=== PATIENT | female | born 1975 | race Caucasian/White ===

== ENCOUNTER 2023-09-23 12:33 | Emergency (ER) | payer MEDICAID, OTHER, SELFPAY ==
[2023-09-23 12:37] VITALS: BP 155/96; PULSE 78; RESP 18; TEMP 36.6; O2SAT 99; BMI 32.8
--- NOTE | 2023-09-23 12:46 | ED_ITS ---
HPI - General Adult General Chief complaint: Fall Stated complaint: fall at work l side inj Time Seen by Provider: 09/23/23 12:45 Source: patient Mode of arrival: ambulatory Limitations: no limitations History of Present Illness HPI narrative: Patient is a 47 year old assigned female at with no reported medical history presenting to the emergency department today with left sided pain after a fall. Patient states that she tripped and fell landing on her left side and now her entire left side of her body hurts. Patient denies any head strike or loss of consciousness. Patient denies any dizziness, lightheadedness, abdominal pain, nausea, vomiting, fever, chills, blurry vision, double vision, loss of vision, chest pain, difficulty breathing, shortness of breath, back pain, night sweats, pain with urination, increased urinary frequency, increased urinary urgency, blood in her urine or stool, syncope or a near syncopal episode, bowel incontinence, bladder incontinence, bowel retention, bladder retention, or any other complaints at this time. Onset (ago): hour(s) Location: left (body) Severity: mild Severity scale (1-10): 3 Quality: aching and dull Pain Consistency: constant Relieving factors: none Exacerbating factors: none Associated symptoms: denies other symptoms Treatments prior to arrival: none Related Data Previous Rx's Medication Instructions Recorded cyclobenzaprine 5 mg tablet 5 mg PO TID PRN muscle spasm 7 09/23/23 days #21 tabs Allergies Allergy/AdvReac Type Severity Reaction Status Date / Time No Known Allergies Allergy Verified 09/23/23 12:36 Review of Systems Constitutional: Constitutional: Reports no additional constitutional complaints, Denies chills, Denies fever(s) and Denies night sweats Eyes: Eyes: Reports no additional eye complaints, Denies blurry vision, Denies change in vision, Denies diplopia, Denies eye discharge, Denies loss of vision and Denies eye pain ENT: Denies dizziness Cardiovascular: Cardiovascular: Reports no additional cardiovascular complaints, Denies chest pain, Denies lightheadedness, Denies Loss of Consciousness and Denies dyspnea Respiratory: Respiratory: Reports no additional respiratory complaints and Denies dyspnea Gastrointestinal: Gastrointestinal: Reports no additional gastrointestinal complaints, Denies abdominal pain, Denies melena, Denies hematochezia, Denies change in bowel habits and Denies change in stool character Genitourinary: Genitourinary: Denies hematuria, Denies urinary frequency, Denies dysuria, Denies urinary incontinence, Denies urinary hesitancy and Denies urinary urgency Musculoskeletal: Musculoskeletal: Reports no additional musculoskeletal complaints, Denies numbness and Denies tingling Neurologic: Denies dizziness, Denies loss of vision, Denies numbness and Denies tingling Psychiatric: Psychiatric: Reports no additional psychiatric complaints Endocrine: Endocrine: Reports no additional endocrine complaints Hematologic/Lymphatic: Hematologic/Lymphatic: Reports no additional hematologic/lymphatic complaints Allergic/Immunologic: Allergic/Immunologic: Reports no additional allergic/immunologic complaints [facility] Past Medical History Attestation statement: The following information was validated with the patient. Source: old records reviewed and nursing notes reviewed Social History Social History Smoked in Last 30 Days: No Use of substances other than those prescribed or required for medical reasons: No Advance Directives: No Advance Directives Information Provided: No Physical Exam ED Vital Signs: Vital Signs - 24 hr 09/23/23 12:37 09/23/23 13:18 Temperature 97.8 F Pulse Rate 78 69 Respiratory Rate 18 14 Blood Pressure 155/96 H Pulse Oximetry 99 96 Oxygen Delivery Method Room Air Room Air BMI result Body Mass Index 32.8 Const General: cooperative, no acute distress, alert and awake Nutritional Appearance: well nourished Orientation/consciousness: patient oriented x3 Limitations: no limitations [facility] Head: Yes normal to inspection and Yes atraumatic Ears: hearing grossly normal bilaterally and external ears normal General nose exam: Normal external nose present, no nasal discharge noted and no epistaxis Face and sinus: Yes normal facial exam, No abrasion and No laceration Mouth: Normal oral and palatal mucosa present, no drooling and no muffled voice Eyes General: appearance normal, both eyes and all related structures Periorbital: periorbital findings normal Eyelids: Yes eyelids normal Conjunctivae: conjunctivae normal Pupils: Equal, round and reactive pupils present EOM: EOMs intact bilaterally Neck Neck: Yes normal visual inspection, Yes full ROM and Yes no lymphadenopathy Chest Chest palpation & inspection: normal inspection of the chest Resp Effort & Inspection: normal respiratory effort and able to speak in complete sentences Auscultation: clear to auscultation bilaterally Cardio Rate: regular rate Rhythm: regular rhythm GI Inspection: Yes normal to inspection Palpation (GI): Soft to palpation, not firm, nontender and no guarding Neuro General: patient oriented x3 and moves all extremities Cranial nerves: Yes Equal, round and reactive pupils present Cognition (Neuro): normal cognition Motor exam (neuro): 5/5 motor strength present throughout Sensory Exam: Normal double simultaneous stimulation for sensation Coordination: [id number] test normal Extrem General: Yes normal to inspection, Yes full ROM and Yes capillary refill normal Psych Appearance: grossly normal Mental Status: mental status grossly normal Affect: normal affect Attitude: cooperative Thought process: Normal thought process present Thought content: Normal thought content present Insight: Good insight present (Psych) Medications Administered Discontinued Medications Generic Name Dose Route Start Last Admin Trade Name Roosevelt PRN Reason Stop Dose Admin Cyclobenzaprine HCl 5 mg 09/23/23 12:52 09/23/23 13:05 Cyclobenzaprine Hcl 5 Mg Tablet PO 09/23/23 12:53 5 mg ONCE ONE Administration Ketorolac Tromethamine 15 mg 09/23/23 12:52 09/23/23 13:05 Ketorolac Tromethamine 15 Mg/Ml Vial IM 09/23/23 12:53 15 mg ONCE ONE Administration Medical Decision Making Medical Decision Making MDM Narrative: Patient is a 47 year old assigned female at with no reported medical history presenting to the emergency department today with left sided body pain after a fall. Patient's physical exam was unremarkable. I explained my physical exam findings to the patient. I answered all questions asked by the patient. I stressed the importance of the patient taking her medication as prescribed. I stressed the importance of the patient following up with her primary care provider. I stressed the importance of the patient returning to the emergency department immediately if her symptoms were to worsen or if she were to develop any dizziness, shortness of breath, difficulty breathing, chest pain, blurry vision, loss of vision, nausea, vomiting, abdominal pain, fever, chills, back pain, or any other complaints. Patient verbalized agreement and understanding with this treatment plan and discharge. Differential Diagnosis Differential Diagnoses: The differential diagnosis associated with the pres entation includes Trip and fall Left sided body pain Tests considered The following testing was considered but not selected: X-rays were considered however, the patient's clinical presentation did not warrant imaging at this time. Prescription Management I considered prescription management with: Pain Medication (patient prescribed pain medication.) Discharge Plan Discharge Clinical Impression: Fall Patient Disposition: Home, Self-Care Instructions: Fall Prevention (ED) Additional Instructions: Follow up with your primary care provider. Return to the emergency department immediately if your symptoms worsen or if you develop any dizziness, shortness of breath, difficulty breathing, chest pain, blurry vision, loss of vision, nausea, vomiting, abdominal pain, fever, chills, back pain, or any other complaints. Alon un seguimiento con garcia proveedor de atenci?n primaria. Regrese al departamento de emergencias inmediatamente si claudio s?ntomas empeoran o si presenta mareos, dificultad para respirar, dificultad para respirar, dolor en el pecho, visi?n borrosa, p?rdida de la visi?n, n?useas, v?mitos, dolor abdominal, fiebre, escalofr?os, dolor de espalda o cualquier otras quejas. Prescriptions: New cyclobenzaprine 5 mg tablet 5 mg PO TID PRN (Reason: muscle spasm) 7 Days Qty: 21 0RF Referrals: [facility] [Provider Group] (Call to establish and follow up with a primary care provider. If you already have a primary care provider, please follow up with them. Llame para establecer y realizar un seguimiento con un proveedor de atenci?n primaria. Si ya tiene un proveedor de atenci?n primaria, alon un seguimiento con ?l.) [facility] Primary CareJose [Provider Group] (Call to establish and follow up with a primary care provider. If you already have a primary care provider, please follow up with them. Llame para establecer y realizar un seguimiento con un proveedor de atenci?n primaria. Si ya tiene un proveedor de atenci?n primaria, alon un seguimiento con ?l.) [facility] Primary Care[facility] [Provider Group] (Call to establish and follow up with a primary care provider. If you already have a primary care provider, please follow up with them. Llame para establecer y realizar un seguimiento con un proveedor de atenci?n primaria. Si ya tiene un proveedor de atenci?n primaria, alon un seguimiento con ?l.) Stand Alone Forms: Work/School Release Interventions: ED Discharge Assessment Last Done: 09/23/23 13:29 Discharge Date/Time: 09/23/23 13:30 Print Language: Cymraes
--- NOTE | 2023-09-23 12:46 | PC.NURSE ---
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 Pt reports left sided body pains from her shoulder all the way down to her ankle. She reports mild neck pain but has full range of motion in all extremities
[2023-09-23] MEDS: Cyclobenzaprine HCl 5 MG TABLET PO (13:05)
[2023-09-23] MEDS: Ketorolac Tromethamine 15 MG/ML VIAL IM (13:05)
[2023-09-23 13:18] VITALS: PULSE 69; RESP 14; O2SAT 96
== END 2023-09-23 13:30 | disposition home or self-care (01) ==
PROVIDERS: Emergency Provider Emergency Medicine
DX: S79.912A Unspecified injury of left hip, initial encounter (principal); W01.10XA Fall on same level from slipping, tripping and stumbling with subsequent striking against unspecified object, initial encounter; Y93.9 Activity, unspecified; Y92.9 Unspecified place or not applicable; Y99.0 Civilian activity done for income or pay
CPT/HCPCS: 96372; 99284; J1885

== ENCOUNTER 2024-07-05 11:02 | Outpatient (REF) | payer MEDICAID, OTHER, SELFPAY ==
--- NOTE | ~2024-07-05 | US_ITS ---
EXAMINATION: MM DIAGNOSTIC DIGITAL BREAST TOMOSYNTHESIS, BILATERAL US BREAST LIMITED, BILATERAL MAMMOGRAPHY: CLINICAL INFORMATION: Diagnostic exam for 40-year-old female complaining of bilateral breast pain (diffuse on the left, inferolateral and medial as well as the retroareolar on the right) as well as bilateral palpable nodularities, with the patient having history of numerous cysts in both breasts. History of benign left breast cyst aspiration 03/17/2022. COMPARISON: Mammography: 03/06/2022. ([facility]) TECHNIQUE: Digital breast tomosynthesis is performed in both the craniocaudal and mediolateral oblique views along with computer-aided detection (CAD). Synthesized 2D images are generated from the tomosynthesis. In addition, added bilateral 3-D full-field MLO views for anterior compression were obtained. FINDINGS: The breasts are extremely dense, which lowers the sensitivity of mammography (ACR BI-RADS breast composition Category d). Redemonstration of innumerable global calcifications bilateral breasts, of which the majority layer on the MLO projections and are suggestive of milk of calcium. These are unchanged and benign. No suspicious pleomorphic groupings. No aggressive changes. There are numerous round and oval circumscribed masses in both breasts right greater than left, similar to recent prior exam, representing the known numerous cysts in both breasts. These are benign and largely stable. There is no area of architectural distortion in either breast. No suspicious masses. Parenchymal pattern is stable from 03/06/2022. No skin or axillary abnormalities. No correlation in either breast mammographically for breast pain aside from numerous cysts. ULTRASOUND: CLINICAL INFORMATION: Diffuse LEFT breast pain, and inferolateral and medial RIGHT breast pain. COMPARISON: Bilateral 08/06/2022, Left ultrasound 07/29/2022, bilateral diagnostic ultrasound 03/06/2022. ([facility]) TECHNIQUE: Targeted sonographic both breasts evaluation was performed using a high frequency linear transducer. Entire LEFT breast was scanned including all 4 quadrants, and the retroareolar region. The RIGHT breast was scanned lower lateral and lower medial quadrants, and the retroareolar region. This includes the regions of bilateral pain and numerous palpable nodularities. Selected archived documentation. FINDINGS: RIGHT BREAST: There is dense fibrocystic breast tissue present. There are numerous oval and round simple cysts as well as clusters of cysts present. These are benign. There are echogenic foci with ringdown artifact within microcysts, findings consistent with benign milk of calcium. No suspicious masses, abnormal shadowing, or suspicious cystic findings. Lower inner and lateral regions of right breast pain, likely related to the presence of numerous cysts. LEFT BREAST: There is dense fibrocystic breast tissue present. There are several oval and round simple cysts as well as clusters of microcysts cysts present. These are benign. There are echogenic foci with ringdown artifact within microcysts, findings consistent with benign milk of calcium. No suspicious masses, abnormal shadowing, or suspicious cystic findings. Diffuse left breast pain likely related to presence of numerous cysts. US/US breast LT limited mamm only IMPRESSION: -There are no findings suspicious for malignancy. There are no significant changes from the prior study. -Benign calcifications globally in both breasts. These layer and are likely milk of calcium. -Numerous round and oval cysts in both breasts, likely correlating with the regions of pain and palpable concern. Recommend clinical management and follow-up. -Otherwise, recommend the patient resume annual screening. OVERALL ASSESSMENT: Mammography: BI-RADS 2 - Benign Findings Ultrasound: BI-RADS 2 - Benign Findings RECOMMENDATION: 1. Patient should be managed based on the clinical impression. 2. Otherwise, routine annual screening mammography. This patient's information was entered into a reminder system with a target due date for their next mammogram.
--- NOTE | ~2024-07-05 | US_ITS ---
EXAMINATION: MM DIAGNOSTIC DIGITAL BREAST TOMOSYNTHESIS, BILATERAL US BREAST LIMITED, BILATERAL MAMMOGRAPHY: CLINICAL INFORMATION: Diagnostic exam for 40-year-old female complaining of bilateral breast pain (diffuse on the left, inferolateral and medial as well as the retroareolar on the right) as well as bilateral palpable nodularities, with the patient having history of numerous cysts in both breasts. History of benign left breast cyst aspiration 03/17/2022. COMPARISON: Mammography: 03/06/2022. ([facility]) TECHNIQUE: Digital breast tomosynthesis is performed in both the craniocaudal and mediolateral oblique views along with computer-aided detection (CAD). Synthesized 2D images are generated from the tomosynthesis. In addition, added bilateral 3-D full-field MLO views for anterior compression were obtained. FINDINGS: The breasts are extremely dense, which lowers the sensitivity of mammography (ACR BI-RADS breast composition Category d). Redemonstration of innumerable global calcifications bilateral breasts, of which the majority layer on the MLO projections and are suggestive of milk of calcium. These are unchanged and benign. No suspicious pleomorphic groupings. No aggressive changes. There are numerous round and oval circumscribed masses in both breasts right greater than left, similar to recent prior exam, representing the known numerous cysts in both breasts. These are benign and largely stable. There is no area of architectural distortion in either breast. No suspicious masses. Parenchymal pattern is stable from 03/06/2022. No skin or axillary abnormalities. No correlation in either breast mammographically for breast pain aside from numerous cysts. ULTRASOUND: CLINICAL INFORMATION: Diffuse LEFT breast pain, and inferolateral and medial RIGHT breast pain. COMPARISON: Bilateral 08/06/2022, Left ultrasound 07/29/2022, bilateral diagnostic ultrasound 03/06/2022. ([facility]) TECHNIQUE: Targeted sonographic both breasts evaluation was performed using a high frequency linear transducer. Entire LEFT breast was scanned including all 4 quadrants, and the retroareolar region. The RIGHT breast was scanned lower lateral and lower medial quadrants, and the retroareolar region. This includes the regions of bilateral pain and numerous palpable nodularities. Selected archived documentation. FINDINGS: RIGHT BREAST: There is dense fibrocystic breast tissue present. There are numerous oval and round simple cysts as well as clusters of cysts present. These are benign. There are echogenic foci with ringdown artifact within microcysts, findings consistent with benign milk of calcium. No suspicious masses, abnormal shadowing, or suspicious cystic findings. Lower inner and lateral regions of right breast pain, likely related to the presence of numerous cysts. LEFT BREAST: There is dense fibrocystic breast tissue present. There are several oval and round simple cysts as well as clusters of microcysts cysts present. These are benign. There are echogenic foci with ringdown artifact within microcysts, findings consistent with benign milk of calcium. No suspicious masses, abnormal shadowing, or suspicious cystic findings. Diffuse left breast pain likely related to presence of numerous cysts. US/US breast RT limited mamm only IMPRESSION: -There are no findings suspicious for malignancy. There are no significant changes from the prior study. -Benign calcifications globally in both breasts. These layer and are likely milk of calcium. -Numerous round and oval cysts in both breasts, likely correlating with the regions of pain and palpable concern. Recommend clinical management and follow-up. -Otherwise, recommend the patient resume annual screening. OVERALL ASSESSMENT: Mammography: BI-RADS 2 - Benign Findings Ultrasound: BI-RADS 2 - Benign Findings RECOMMENDATION: 1. Patient should be managed based on the clinical impression. 2. Otherwise, routine annual screening mammography. This patient's information was entered into a reminder system with a target due date for their next mammogram.
== END 2024-07-05 11:03 | disposition home or self-care (01) ==
LOC: HO.MAMMO 11:02
PROVIDERS: PCP Student in an Organized Health Care Education/Training Program; Visit Provider Student in an Organized Health Care Education/Training Program
DX: N64.4 Mastodynia (principal); N60.02 Solitary cyst of left breast
CPT/HCPCS: 76642; 77062; 77066

== ENCOUNTER → 2024-07-05 11:30 | Outpatient (BNV) | payer SELFPAY | PROVIDERS: PCP Student in an Organized Health Care Education/Training Program; Visit Provider Radiology Diagnostic Radiology | DX: N64.4 Mastodynia (principal) | CPT/HCPCS: 76642; 77062; 77066 ==

== ENCOUNTER 2025-05-10 08:34 | Emergency (ER) | payer MEDICAID, OTHER, SELFPAY ==
[2025-05-10 08:43] VITALS: BP 114/73; PULSE 75; RESP 18; TEMP 37; O2SAT 98; BMI 28.9
--- NOTE | 2025-05-10 08:57 | ECG_ITS ---
Test Reason : cp Blood Pressure : */* mmHG Vent. Rate : 76 BPM Atrial Rate : 76 BPM P-R Int : 178 ms QRS Dur : 100 ms QT Int : 384 ms P-R-T Axes : 49 -30 41 degrees QTcB Int : 432 ms Normal sinus rhythm Left axis deviation Minimal voltage criteria for LVH, may be normal variant ( [place] product ) Abnormal ECG No previous ECGs available Referred By: Ed Garcia Electronically Signed By: Derek Lay
--- NOTE | 2025-05-10 08:58 | ED_ITS ---
HPI - General Adult General Chief complaint: General Medical Stated complaint: Fever, sore throat Time Seen by Provider: 05/10/25 08:42 Source: patient Mode of arrival: ambulatory Limitations: no limitations History of Present Illness HPI narrative: THIS IS A 49 YEARS OLD THE PATIENT HISTORY OF HYPERTENSION PRESENTED TO EMERGENCY DEPARTMENT WITH MULTIPLE COMPLAINTS ONE IS SORE THROAT FOR ABOUT 3 DAYS AND FEVER ALSO SHE IS COMPLAINING OF YESTERDAY SHE WAS AT WORK SHE FELT DIZZY LIGHTHEADED SHE HAD AN EPISODE OF PASSING OUT FEELING. SHE REPORTS ALSO FEVER NO NAUSEA NO VOMITING NO ABDOMINAL PAIN NO OTHER COMPLAINT Onset (ago): day(s) (2) Radiation: non-radiation Severity: moderate Quality: burning Pain Consistency: constant Relieving factors: none Exacerbating factors: none Related Data Previous Rx's ?Medication ?Instructions ?Recorded cyclobenzaprine 5 mg tablet 5 mg PO TID PRN muscle spa sm 7 09/23/23 days #21 tabs ibuprofen 800 mg tablet 800 mg PO TID PRN pain #20 t abs 05/10/25 Allergies Allergy/AdvReac Type Severity Reaction Status Date / Time No Known Allergies Allergy Verified 05/10/25 08:44 Review of Systems 2 Constitutional: Constitutional: Reports no additional constitutional complaints ENT: Reports as per HPI [facility] Past Medical History [facility] Narrative: HISTORY OF HYPERTENSION Social History Social History Advance Directives: No Advance Directives Information Provided: No Physical Exam ED Vital Signs: Vital Signs - 24 hr 05/10/25 08:43 Temperature 98.6 F Pulse Rate 75 Respiratory Rate 18 Blood Pressure 114/73 Pulse Oximetry 98 Oxygen Delivery Method Room Air BMI result Body Mass Index 28.9 PATIENT LOOKS WELL SHE IS NOT TOXIC-APPEARING SHE IS AFEBRILE SHE HAS A STABLE VITAL SIGNS Const General: cooperative Nutritional Appearance: well nourished Orientation/consciousness: patient oriented x3 Limitations: no limitations HENMT Head: Yes normal to inspection Face and sinus: Yes normal facial exam Mouth: Normal oral and palatal mucosa present Throat: Yes other (EXAMINATION OF THE THROAT SHOWS REDNESS BUT THE UVULA IS MIDLINE NO THRISM) Neck Other: AND NECK IS SUPPLE NO MENINGEAL SIGN Chest Chest palpation & inspection: normal inspection of the chest Resp Effort & Inspection: normal respiratory effort Auscultation: clear to auscultation bilaterally Cardio Jugular venous distension: no JVD Rate: regular rate GI Inspection: Yes normal to inspection Palpation (GI): Soft to palpation Neuro General: patient oriented x3 Course Reevaluation(s) Reevaluation #1: On re-examination the patient is feeling much better she is asymptomatic at this time remained afebrile normotensive anticipate discharge Time: 11:03 Medications Administered Discontinued Medications Generic Name Dose Route Start Last Admin Trade Name Freq PRN Reason Stop Dose Admin Ibuprofen 800 mg 05/10/25 08:56 05/10/25 09:08 Ibuprofen 800 Mg Tablet PO 05/10/25 08:57 800 mg ONCE ONE Administration Medical Decision Making Medical Decision Making [facility] Narrative: THIS IS A 49 YEARS OLD WITH SORE THROAT EPISODE OF LIGHTHEADEDNESS YESTERDAY REASONABLE TO CHECK A RAPID STREP BASELINE BLOOD WORK SHE LOOKS OTHERWISE WELL SHE IS NOT TOXIC-APPEARING ASSUMING ABOVE NORMAL ANTICIPATE DISCHARGE Differential Diagnosis Differential Diagnoses: The differential diagnosis associated with the presentation includes VIRAL SYNDROME/STREP THROAT COVID/FLU/ANEMIA Admission/Observation Consideration of admission/observation: Escalation of care including admission/observation considered Lab Data [facility] Lab Attestation statement: I reviewed the patient's lab results. 05/10/25 09:15 05/10/25 09:15 Labs: Lab Results 05/10/25 05/10/25 Range/Units 09:08 09:15 WBC 12.0 H (4.8-10.8) X10*3/uL RBC 4.45 (4.20-5.50) X10*6/uL Hgb 10.5 L (12.0-16.0) g/dl Hct 34.1 L (37.0-47.0) % MCV 76.6 L (80.0-98.0) fL MCH 23.6 L (27.0-33.0) pg MCHC 30.8 L (31.0-35.0) g/dl RDW 16.6 H (11.0-16.0) % Plt Count 211 (160-400) X10*3/uL MPV 10.1 (9.4-12.3) fL Immature Gran % (Auto) 0.4 (0.0-0.4) % Neut % (Auto) 81.2 H (45-73) % Lymph % (Auto) 9.5 L (20-40) % [place] % (Auto) 8.2 (2-11) % Eos % (Auto) 0.4 (0-4) % Baso % (Auto) 0.3 (0-2) % Lymph # (Auto) 1.1 L (1.2-4.9) X10*3/uL [place] # (Auto) 1.0 (0.1-1.2) X10*3/uL Eos # (Auto) 0.1 (0.0-0.4) X10*3/uL Baso # (Auto) 0.0 (0.0-0.2) X10*3/uL Abs Immat Gran (auto) 0.05 H (0.00-0.03) X10*3/uL Absolute Neuts (auto) 9.7 H (2.0-8.3) x10*3/uL Absolute Nucleated RBC 0.000 (0.0-0.012) X10*3/uL Nucleated RBC % (auto) 0.0 (0.0-0.2) /100WBC Sodium 139 (135-145) mmol/L Potassium 4.1 (3.3-5.1) mmol/L Chloride 105 (96-108) mmol/L Carbon Dioxide 27 (22-29) mmol/L Anion Gap 11 L (12-20) BUN 10 (9-16) mg/dL Creatinine 1.05 (0.5-1.4) mg/dL Estim Creat Clear Calc 74.5 Estimated GFR 56 Random Glucose 109 (60-115) mg/dL Calcium 9.0 (8.4-10.2) mg/dL Total Bilirubin 0.3 (0.0-1.0) mg/dL AST 20 (5-31) U/L ALT 14 (0-31) U/L Alkaline Phosphatase 100 (39-117) U/L Troponin I High Sens < 2.7 (<3.5-17.0) ng/L Total Protein 7.3 (6.5-8.0) g/dL Albumin 4.1 (3.5-5.0) g/dL Influenza Type A (PCR) NEGATIVE (Negative) Influenza Type B (PCR) NEGATIVE (Negative) RSV RNA Qual (PCR) NEGATIVE (Negative) SARS-CoV-2 RNA (RT-PCR) NEGATIVE (Negative) S. pyogenes GrpA ANAYELI Negative (Negative) Independent Interpretation I performed an independent interpretation of an: EKG (Normal sinus rhythm no ST- T changes normal EKG) Discharge Plan Discharge Clinical Impression: Acute viral syndrome Patient Disposition: Home, Self-Care Instructions: Viral Syndrome (ED) Additional Instructions: Follow-up with your primary care physician return to the emergency room if you worse Prescriptions: New ibuprofen 800 mg tablet 800 mg PO TID PRN (Reason: pain) Qty: 20 0RF No Action cyclobenzaprine 5 mg tablet 5 mg PO TID PRN (Reason: muscle spasm) 7 Days Qty: 21 0RF Referrals: Sarina Grier MD [Primary Care Provider, Internal Medicine] - 05/11/25 Stand Alone Forms: Work/School Release Print Language: Swedish
[2025-05-10] MEDS: Ibuprofen 800 MG TABLET PO (09:08)
--- OUTSIDE RECORDS SUMMARY | 2025-05-10 09:17 | XMS_ITS | Clinical Summary ---
Author Organization [facility] Address [address] [place] [address] Care Team Providers Care Regulatory And Compliance Technician Name Role Phone Allison Prather NP Primary Care Provider Source Comments PLEASE NOTE, if this patient is a minor, it may be UNLAWFUL to discuss sensitive information that is contained in these records (such as FAMILY PLANNING, MENTAL HEALTH or SUBSTANCE ABUSE) with the minor patient's parent or other person without the patient's specific authorization.[facility] Allergies No known active allergies Medications amLODIPine (NORVASC) 5 mg tablet Take 5 mg by mouth daily 4 07/31/20 25 Active atorvastatin (LIPITOR) 20 mg tablet Take 20 mg by mouth once daily 4 07/31/20 25 Active lisinopriL 20 mg tablet Take 20 mg by mouth daily 4 07/31/20 25 Active metoprolol succinate XL (TOPROL-XL) 100 mg 24 hr tablet Take 100 mg by mouth daily 4 07/31/20 25 Active ulipristaL (PAIGE) 30 mg tabletIndications: Encounter for prescription of emergency contraception Take 1 Tablet by mouth once for 1 dose 1 Tablet 3 5 Active Active Problems Problem Noted Date Diagnosed Date Class 1 obesity due to exces s calories with serious comorbidity and body mass index (BMI) of 32.0 to 32.9 in adult 07/04/2024 Breast pain 05/17/2024 Primary hypertension 02/09/2024 Encounters Date Type Department Care Team Description 04/11/2025 Results Follow-Up [address] [id number] Renée Guerra MD SURESWAB ADVANCED VAGINITIS PLUS, TMA, THINPREP IMAGING PAP, HPV MRNA E6/E7 RFLEX HPV 16,18/45 CT/NG Cervix-Endocervix Swab Routine 04/04/2025 8:40 AM EDT Office Visit [address] [phone] Renée Guerra MD Martinez, Celestia Encounter for Papanicolaou smear of vagina as part of routine gynecological examination (Primary Dx); Encounter for screening for human papillomavirus (HPV); Screening for STDs (sexually transmitted diseases); Screening mammogram for breast cancer; Encounter for prescription of emergency contraception from Last 3 Months Immunizations Immunization Administration Dates Next Due Hep B, Adult/Adol (ENERGIX/RECOMBIVAX) 07/04/2024(Deferred: Different Brand Given) Hep B,adult,adjuvanted (HEPLISAV) 07/04/2024 TDAP 07/04/2024 Family History Medical History Relation Name Comments Hypertension Father Diabetes Mother Hypertension Mother Relation Name Status Comments Father Mother Alive Social History Tobacco Use Types Packs/Day Years Used Date Smoking Tobacco: Never Smokeless Tobacco: Never Tobacco Cessation:Counseling Given: Yes Alcohol Use Standard Drinks/Week Comments Never 0 (1 standard drink = 0.6 oz pur e alcohol) Social Connections Answer Date Recorded Connectedness 1 07/04/2024 Financial Resource Strain Answer Date R ecorded Financial Resource Strain 1 2023 Stress Answer Date Recorded Stress 1 07/04/2024 Physical Activity Answer Date Recorded Physical Activity 0 02/09/2024 Food Insecurity Answer Date Recorded Food 1 07/04/2024 Transportation Needs Answer Date Record ed Transportation 1 07/04/2024 Housing Stability Answer Date Recorded Housing 1 07/04/2024 Safety and Environment Answer Date Toni rded Safety 0 02/09/2024 Utilities Answer Date Recorded Utilities 1 07/04/2024 Employment Answer Date Recorded Employment 0 02/09/2024 Comments No Sex and Gender Information Value Date Recorded Sex Assigned at Female 02/02/2024 6:53 AM PDT Legal Sex Female 6:53 AM PDT Gender Identity Female 02/02/2024 6:53 AM PDT Sexual Orientation Straight 02/02/2024 6: 53 AM PDT 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 Not on file Not on file Last Filed Vital Signs Vital Sign Reading Time Taken Comments Blood Pressure 118/81 04/04/2025 8:57 AM EDT Pulse 67 04/04/2025 8:57 AM EDT Temperature 36.3 C (97.3 F) 04/04/2025 8:57 AM EDT Respiratory Rate 16 04/04/2025 8:57 AM EDT Oxygen Saturation 100% 04/04/2025 8:57 AM EDT Inhaled Oxygen Concentration - - Weight 96.5 kg (212 lb 11.2 oz) 04/04/2025 8:57 AM EDT Height 172.7 cm (5' 8 ) 07/04/2024 9:52 AM EDT Body Mass Index 32.34 07/04/2024 9:52 AM EDT Plan of Treatment Health Maintenance Due Date Last Done Comments HPV Screening 1975 Breast Cancer Screening (Mammogram) 2015 CT Colonography 2020 Colonoscopy 2020 Colorectal Cancer Screening 2020 FIT/gFOBT 2020 Fecal DNA 2020 Flexible Sigmoidoscopy 2020 [id number] ( season) 2024 Imm-Hepatitis B (2 of 2 - Cp G 2-dose series) 08/01/2024 07/04/2024 Alcohol and Drug Screen 11/22/2024 07/04/2024 Lipid Screening 07/04/2025 07/04/2024 Relationship Safety Screening/Counseling 07/04/2025 07/04/2024 Tobacco Screening 07/04/2025 07/04/2024 Imm-Influenza (Season Ended) 2025 Anxiety Screening 01/12/2026 01/12/2025 Annual Wellness (Adult): Ind icated (All Coverage) 04/04/2026 04/04/2025, 07/04/2024 Diabetes Screening 07/04/2027 07/04/2024, 07/04/2024 Pap Smear 04/04/2028 04/04/2025 Cervical Cancer Screening 04/04/2030 Pap + HPV 04/04/2030 04/04/2025 Imm-DTaP/Tdap/Td (2 - Td or Tdap) 07/04/2034 024 HIV Screening Completed 07/04/2024 Hepatitis C Screening Completed 07/04/2024 Depression Annual Screen Completed 01/12/2025, 06/22 Cervical Ablation/Cold-Knife Conization Discontinued Cervical Cryotherapy Discontinued Colposcopy Discontinued Endometrial Biopsy Discontinued Excision/Leep Discontinued HPV Genotyping Discontinued Vaginal Pap Discontinued Vulvoscopy Discontinued Procedures Procedure Name Priority Date/Time Associated Diagnosis Comments THINPREP IMAGING PAP, HPV MRNA E6/E7 RFLEX HPV 16,18/45 CT/NG Routine 04/04/2025 9:01 AM EDT Encounter for Papanicolaou smear of vagina as part of routine gynecological examination Encounter for screening for human papillomavirus (HPV) SURESWAB ADVANCED VAGINITIS PLUS, TMA Routine 04/04/2025 9:01 AM EDT Screening for STDs (sexually transmitted diseases) HIV 1/2 AG & AB W/RFLX (4TH GEN) Routine 07/04/2024 10:20 AM EDT Routine general medical examination at a health care facility HEPATITIS C AB W/RFLX HCV RNA, QT, RT PCR Routine 07/04/2024 10:20 AM EDT Routine general medical examination at a health care facility HEMOGLOBIN GLYCOSYLATED A1C Routine 07/04/2024 10:20 AM EDT Routine general medical examination at a [facility] care facility LIPID PANEL Routine 07/04/2024 10:20 AM EDT Routine general medical examination at a health care facility from Last 3 Months or Most Recently Relevant to Health Maintenance Results * (ABNORMAL) SURESWAB ADVANCED VAGINITIS PLUS, TMA (04/04/2025 9:01 AM EDT) SURESWAB(R) ADV BACTERIAL VAGINOSIS (BV), TMA POSITIVE(A) NEGATIVE [facility] ANGELA SPECIES NOT DETECTED NOT DETECTED [facility] ANGELA GLABRATA NOT DETECTED NOT DETECTED [facility] COMMENT [facility] TRICHOMONAS VAGINALIS (TV), TMA NOT DETECTED NOT DETECTED [facility] CHLAMYDIA TRACHOMATIS RNA, TMA NOT DETECTED NOT DETECTED [facility] NEISSERIA GONORRHOEAE RNA, TMA NOT DETECTED NOT DETECTED [facility] COMMENT [facility] Vaginal Vaginal structure / Unknown 04/04/2025 9:01 AM EDT 04/05/2025 4:21 AM EDT Narrative [facility] - 04/05/2025 3:03 PM EDT Angela species C. albicans, C. tropicalis, C. parapsilosis, and/or C. dubliniensis can be detected, but not differentiated, in the Angela spp. result. For additional information, please refer to https://education.Hartman Wright/faq/OOE596 (This link is being provided for information/ educational purposes only.) us Renée Guerra MD LAB - MICROBIOLOGY AMBULATORY Fi nal Result [facility] [address] [place] [id number], [facility] [address] [place] [phone] * THINPREP IMAGING PAP, HPV MRNA E6/E7 RFLEX HPV 16,18/45 CT/NG Cervix- Endocervix Swab Routine (04/04/2025 9:01 AM EDT) CHLAMYDIA TRACHOMATIS RNA, TMA NOT DETECTED NOT DETECTED [facility] NEISSERIA GONORRHOEAE RNA, TMA NOT DETECTED NOT DETECTED [facility] COMMENT [facility] CLINICAL INFORMATION See Note [facility] Comment:None given LMP See Note [facility] Comment:03/13/25 PREV. PAP See Note [facility] Comment:NONE GIVEN PREV. BX See Note [facility] Comment:NONE GIVEN SOURCE See Note [facility] Comment:Cervix, Endocervix STATEMENT OF ADEQUACY See Note [facility] Comment: Satisfactory for evaluation. Endocervical/transformation zone component absent. INTERPRETATION/RESU LT See Note [facility] Comment: Cytology Results: Negative for intraepithelial lesion or malignancy. INFECTION See Note [facility] Comment: Shift in vaginal deana suggestive of bacterial vaginosis. COMMENT See Note [facility] Comment: This Pap test has been evaluated with computer assisted technology. PHP ENGINEER See Note [facility] Into [employer] Comment: RXB, CT(ASCP) CT screening location: [place] [address] COMMENT [facility] HPV MRNA E6/E7 Not Detected Not Detected [facility] Comment: Methodology: Training Manager-Mediated Amplification This assay detects E6/E7 viral messenger RNA (mRNA) from 14 high-risk HPV types (16,18,31,33,35,39,45,51,52,56,58,59,66,68). Cervical sources are required for HPV testing. If a vaginal source from a patient who has had a total hysterectomy with removal of cervix was submitted, please contact the testing laboratory for alternative testing options. For additional information, please refer to http://ClaimIt.Hartman Wright/faq/AYN197o0 (This link if provided for information/ educational purposes only.) Swab Cervix uteri structure / Unknown 04/04/2025 9:01 AM EDT 04/05/2025 11:35 AM EDT Narrative [facility] - 04/09/2025 2:43 PM EDT EXPLANATORY NOTE: The Pap is a screening test for cervical cancer. It is not a diagnostic test and is subject to false negative and false positive results. It is most reliable when a satisfactory sample, regularly obtained, is submitted with relevant clinical findings and history, and when the Pap result is evaluated along with historic and current clinical information. The analytical performance characteristics of this assay, when used to test SurePath(TM) specimens have been determined by [employer]. The modifications have not been cleared or approved by the FDA. This assay has been validated pursuant to the CLIA regulations and is used for clinical purposes. For additional information, please refer to https://education.Hartman Wright/faq/CIT300 (This link is being provided for information/ educational purposes only.) us Renée Guerra MD LAB - PATHOLOGY AND CYTOLOGY AMB ULATORY Final Result [facility] [address] [address], [facility] [address] [place] [address] * HEPATITIS C AB W/RFLX HCV RNA, QT, RT PCR (07/04/2024 10:20 AM EDT) HEPATITIS C ANTIBODY NON-REACT JESUS NON-REACT JESUS [facility] Comment: HCV antibody was non-reactive. There is no laboratory evidence of HCV infection. In most cases, no further action is required. However, if recent HCV exposure is suspected, a test for HCV RNA (test code 57420) is suggested. For additional information please refer to http://ClaimIt.Hartman Wright/faq/LVL00d0 (This link is being provided for informational/ educational purposes only.) Blood Blood / Unknown 07/04/2024 1 0:20 AM EDT 07/04/2024 10:21 AM EDT Allison Prather NP LAB - BLOOD DRAW Final Resul t [facility] [address] [place] [address], [facility] [address] [phone] * HIV 1/2 AG & AB W/RFLX (4TH GEN) (07/04/2024 10:20 AM EDT) HIV AG/AB, 4TH GEN NON-REAC TIVE NON-REAC TIVE [facility] Comment: HIV-1 antigen and HIV-1/HIV-2 antibodies were not detected. There is no laboratory evidence of HIV infection. PLEASE NOTE: This information has been disclosed to you from records whose confidentiality may be protected by state law. If your state requires such protection, then the state law prohibits you from making any further disclosure of the information without the specific written consent of the person to whom it pertains, or as otherwise permitted by law. A general authorization for the release of medical or other information is NOT sufficient for this purpose. For additional information please refer to http://ClaimIt.Hartman Wright/faq/MYD918 (This link is being provided for informational/ educational purposes only.) The performance of this assay has not been clinically validated in patients less than 2 years old. Blood Blood / Unknown 07/04/2024 1 0:20 AM EDT 07/04/2024 10:21 AM EDT us Allison Prather NP LAB - BLOOD DRAW Final Resul t Performing Organization Address [facility]/ZIP Co de Phone Number [facility] [address] [address], Compliance Control [address] [phone] * HEMOGLOBIN GLYCOSYLATED A1C (07/04/2024 10:20 AM EDT) HEMOGLOBIN A1C 5.6 <5.7 % of total Hgb [facility] Comment: For the purpose of screening for the presence of diabetes: <5.7% Consistent with the absence of diabetes 5.7-6.4% Consistent with increased risk for diabetes (prediabetes) > or =6.5% Consistent with diabetes This assay result is consistent with a decreased risk of diabetes. Currently, no consensus exists regarding use of hemoglobin A1c for diagnosis of diabetes in children. According to [place] Diabetes Association (ADA) guidelines, hemoglobin A1c <7.0% represents optimal control in non- diabetic patients. Different metrics may apply to specific patient populations. Standards of Medical Care in Diabetes(ADA). Blood Blood / Unknown 07/04/2024 1 0:20 AM EDT 07/04/2024 10:21 AM EDT us Allison Prather NP LAB - BLOOD DRAW Edited Resu lt - Final Performing Organization Address [facility]/ZIP Co de Phone Number [facility] [address] [address], Compliance Control [address] [address] * LIPID PANEL (07/04/2024 10:20 AM EDT) CHOLESTEROL, TOTAL 146 <200 mg/dL [facility] HDL CHOLESTEROL 85 > OR = 50 mg/dL [facility] TRIGLYCERIDES 36 <150 mg/dL [facility] LDL-CHOLESTEROL 51 99 mg/dL (calc) [facility] Comment: Reference range: <100 Desirable range <100 mg/dL for primary prevention; <70 mg/dL for patients with CHD or diabetic patients with > or = 2 CHD risk factors. LDL-C is now calculated using the Arnaldo-Moncada calculation, which is a validated novel method providing better accuracy than the Friedewald equation in the estimation of LDL-C. Arnaldo SS et al. JULIA. 2013;310(19): 5744-6856 (http://education.TableApp/faq/TXX671) CHOL/HDLC RATIO 1.7 <5.0 (calc) [facility] NON-HDL CHOLESTEROL 61 <130 mg/dL (calc) [facility] Comment: For patients with diabetes plus 1 major ASCVD risk factor, treating to a non-HDL-C goal of <100 mg/dL (LDL-C of <70 mg/dL) is considered a therapeutic option. Blood Blood / Unknown 07/04/2024 1 0:20 AM EDT 07/04/2024 10:21 AM EDT Allison Prather NP LAB - BLOOD DRAW Final Resul t [facility] [address] [address], [facility] [address] [place] [address] from Last 3 Months or Most Recently Relevant to Health Maintenance Insurance [place] Care Teams Regulatory And Compliance Technician Relationship Specialty Start Date End Date Allison Prather NP [facility] [place] [address] PCP - General Internal Medicine 04/20/24
[2025-05-10 09:18] LABS: MANUAL DIFF FLAG NO
[2025-05-10 09:21] LABS: Basophils Percent Auto 0.3 % (0-2); Eosinophils Absolute Auto 0.1 X10*3/uL (0.0-0.4); Eosinophils Percent Auto 0.4 % (0-4); Hematocrit 34.1 % (37.0-47.0); Hemoglobin 10.5 g/dl (12.0-16.0); Imm Gran Abs Auto 0.05 X10*3/uL (0.00-0.03); Imm Gran Pct Auto 0.4 % (0.0-0.4); Lymphocytes Absolute Auto 1.1 X10*3/uL (1.2-4.9); Lymphocytes Percent Auto 9.5 % (20-40); Mean Corpuscular HGB Conc 30.8 g/dl (31.0-35.0); Mean Corpuscular Hemoglobin 23.6 pg (27.0-33.0); Mean Corpuscular Volume 76.6 fL (80.0-98.0); Mean Platelet Volume 10.1 fL (9.4-12.3); Monocytes Percent Auto 8.2 % (2-11); Neutrophils Absolute Auto 9.7 x10*3/uL (2.0-8.3); Neutrophils Percent Auto 81.2 % (45-73); Platelet Count 211 X10*3/uL (160-400); Red Blood Count 4.45 X10*6/uL (4.20-5.50); Red Cell Distribution Width 16.6 % (11.0-16.0)
[2025-05-10 09:24] LABS: IDNOW Serial# 55D5AD1C; Strep A Nucleic Acid Negative (Negative)
[2025-05-10 09:35] LABS: Alanine Aminotransferase 14 U/L (0-31); Albumin Level 4.1 g/dL (3.5-5.0); Alkaline Phosphatase 100 U/L (39-117); Anion Gap 11 (12-20); Aspartate Amino Transferase 20 U/L (5-31); Bilirubin Total 0.3 mg/dL (0.0-1.0); Blood Urea Nitrogen 10 mg/dL (9-16); Carbon Dioxide 27 mmol/L (22-29); Chloride 105 mmol/L (96-108); Creatinine Clr Calc Pharmacy 74.5; Estimated Glomerular Filt Rate 56; Glucose Random 109 mg/dL (60-115); Potassium 4.1 mmol/L (3.3-5.1); Sodium 139 mmol/L (135-145); Total Protein 7.3 g/dL (6.5-8.0)
[2025-05-10 09:43] LABS: Troponin-I High Sensitivity < 2.7 ng/L (<3.5-17.0)
[2025-05-10 10:11] LABS: Influenza A PCR NEGATIVE (Negative); Influenza B PCR NEGATIVE (Negative); Resp Syncy Virus RNA Qual PCR NEGATIVE (Negative); SARS COV2 PCR INHOUSE NEGATIVE (Negative)
[2025-05-10 11:08] VITALS: BP 114/73; PULSE 75; RESP 18; TEMP 37; O2SAT 98
== END 2025-05-10 11:11 | disposition home or self-care (01) ==
PROVIDERS: Emergency Provider Emergency Medicine; PCP Student in an Organized Health Care Education/Training Program
DX: B34.9 Viral infection, unspecified (principal); R50.9 Fever, unspecified; J02.9 Acute pharyngitis, unspecified; R07.89 Other chest pain; R42 Dizziness and giddiness; I10 Essential (primary) hypertension; Z03.818 Encounter for observation for suspected exposure to other biological agents ruled out
CPT/HCPCS: 0241U; 36415; 80053; 84484; 85025; 87651; 93005; 99283

== ENCOUNTER → 2025-05-10 08:57 | Outpatient (BNV) | payer MEDICAID, SELFPAY | PROVIDERS: Emergency Provider Emergency Medicine; PCP Student in an Organized Health Care Education/Training Program; Visit Provider Internal Medicine Cardiovascular Disease | DX: R94.31 Abnormal electrocardiogram [ECG] [EKG] (principal); R07.9 Chest pain, unspecified | CPT/HCPCS: 93010 ==

== ENCOUNTER 2025-07-31 11:23 | Outpatient (REF) | payer MEDICAID, OTHER, SELFPAY ==
--- OUTSIDE RECORDS SUMMARY | 2025-07-31 09:30 | XMS_ITS | Encounter Summary ---
Author Organization [employer] Address [address] [facility] 7t [place] [address] Care Team Providers Care Technical Information Specialist Name Role Phone Sarina Mcmahon MD Primary Care Provide r Reason for Visit * Reason Comments Annual Exam Encounter Details Date Type Department Care Team ([facility] st Contact Info) Description 07/31/2025 9:30 AM EDT Office Visit [facility] [address] [place], [place] [phone] Sarina Mcmahon MD [address] [place], [place] [phone] Primary hypertension (Primary Dx); Screening for colon cancer; Vaginal itching; Encounter for preventive care Social History Tobacco Use Types Packs/Day Years Used Date Smoking Tobacco: Never Passive Smoke Exposure: Never Smokeless Tobacco: Never Alcohol Use Standard Drinks/Week Comments Never 0 (1 standard drink = 0.6 oz pur e alcohol) Housing Stability Answer Date Recorded What is your housing situation today? I have sharon meagan 07/31/[address] you li ve. Do you have problems with any of the following? Oven or stove not working 07/31/2025 Food Insecurity Answer Date Recorded Within the past 12 months, y ou worried that your food would run out before you got money to buy more: Sometimes True 2024 Within the past 12 months,th e food you bought just didn't last and you didn't have enough money to get more: Never True 07/31/2025 Transportation Answer Date Recorded In the past 12 months, has l ack of transportation kept you from medical appts, meetings, work or from getting things needed for daily living? No 07/20/2025 Utilities Answer Date Recorded In the past 12 months, has t he electric, gas, oil or water company threatened to shut off services in your home? No 07/20/2025 Internet Access Answer Date Recorded Internet Access Q1 Yes 07/20/2025 Internet Access Q2 Not on file 07/20/2025 Comments Unknown Sex and Gender Information Value Date Recorded Sex Assigned at Female 05/16/2024 10:18 AM EDT Legal Sex Female 10:11 AM EDT Gender Identity Female 05/16/2024 10:18 AM EDT Sexual Orientation Straight 05/16/2024 10 :18 AM EDT documented as of this encounter Last Filed Vital Signs Vital Sign Reading Time Taken Comments Blood Pressure 126/78 07/31/2025 9:31 AM EDT Pulse 72 07/31/2025 9:31 AM EDT Temperature 36.4 C (97.6 F) 07/31/2025 9:31 AM EDT Respiratory Rate 24 07/31/2025 9:31 AM EDT Oxygen Saturation 98% 07/31/2025 9:31 AM EDT Inhaled Oxygen Concentration - - Weight 98.4 kg (217 lb) 07/31/2025 9:31 AM EDT Height 172.7 cm (5' 8 ) 07/31/2025 9:31 AM EDT Body Mass Index 32.99 07/31/2025 9:31 AM EDT documented in this encounter Functional Status * Over the last 2 weeks, how often have you been bothered by any of the following problems? Question Answer Date of Assessment Author Feeling nervous, anxious, or on edge 1 07/2025 9:52 AM EDT Vale Padilla MA Not being able to stop or co ntrol worrying 0 07/31/2025 9:52 AM EDT Vale Padilla MA Worrying too much about diff erent things 1 07/31/2025 9:52 AM EDT Vale Padilla MA Trouble relaxing 1 07/31/2025 9:52 AM EDT Vale Khanna MA Being so restless that it is hard to sit still 0 07/31/2025 9:52 AM EDT Vale Padilla MA Becoming easily annoyed or irritable 3 07/2025 9:52 AM EDT Vale Padilla MA Feeling afraid as if somethi ng awful might happen 1 07/31/2025 9:52 AM EDT Vale Padilla MA GEORGIA-7 Total Score 7 07/31/2025 9:52 AM NORMANT Vale Padilla MA documented as of this encounter Progress Notes * Sarina Herndon MD - 07/31/2025 9:30 AM EDT SUBJECTIVE: Lilliam Mcqueen is a 49 y.o. year old female who presents for Physical . 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 Lives with: and kids - EtOH denies - smoking cigarettes denies - recreational drug use denies Diet:regular Exercise:sedentary LMP: 05/25/25 irregular Surgeries/Hospitalizations: 2 and ectopic Colonoscopy: not done - cologuard today PAP up to date done 04/04/25 next one in 5 years Mammogram up to date: next one due on 07/07/2026 PMHx:HTN, DLP, chronic bilateral knee pain, vitiligo FMHx:father and mother HTN, mother DM type 2 Immunizations: Reviewed Acute Concerns: Patient reports she has being having vaginal itching no discharge, she also reports her periods re becoming irregular and less frequent Social History Social History Narrative Not on file Problem List[1] Family History[2] Review of Systems Constitutional: Negative. HENT: Negative. Respiratory: Negative. Cardiovascular: Negative. Genitourinary: Positive for menstrual problem. Negative for decreased urine volume, difficulty urinating, dyspareunia, dysuria, enuresis, flank pain, frequency, genital sores, hematuria, pelvic pain,urgency, vaginal bleeding, vaginal discharge and vaginal pain. Vaginal itching OBJECTIVE: Vitals: 07/31/25 0931 BP: 126/78 BP Location: Left arm Patient Position: Sitting BP Cuff Size: Adult Pulse: 72 Resp: 24 Temp: 97.6 ??F (36.4 ??C) TempSrc: Temporal SpO2: 98% Weight: 217 lb (98.4 kg) Height: 5' 8 (1.727 m) Physical Exam Constitutional: Appearance: Normal appearance. Cardiovascular: Rate and Rhythm: Normal rate and regular rhythm. Pulmonary: Effort: Pulmonary effort is normal. Breath sounds: Normal breath sounds. Abdominal: General: Abdomen is flat. Palpations: Abdomen is soft. Musculoskeletal: Right lower leg: No edema. Left lower leg: No edema. Neurological: Mental Status: She is alert. Follow Up: Follow up in about 6 months (around 01/28/2026) for HTN . Medications Ordered Prior to Encounter[3] Problem List Items Addressed This Visit Primary hypertension - Primary I advised: - Aerobic exercise to reduce BP. Initial goal of 30 min walk 3-5x/week. Increase as tolerated. - low-sodium diet (goal: <2g/day) and heart healthy diet such as DASH to reduce BP and prevent ASCVD. - Home BP monitoring 1-2 x day with goal of <140/90. - Seek immediate medical attention for chest pain, palpitations, SOB, syncope, or sudden changes inmental status. - Do not change or discontinue current prescriptions without first consulting health care provider Vaginal itching BV ordered patient will be contacted with results I will prescribe for now clotrimazole cream Relevant Medications clotrimazole (Lotrimin) 1 % vaginal cream Other Relevant Orders Bacterial Vaginosis Panel Encounter for preventive care See HPI Other Visit Diagnoses Screening for colon cancer Relevant Orders Cologuard?? colon cancer screening [1] Patient Active Problem List Diagnosis Breast pain Primary hypertension Anemia Vaginal itching Encounter for preventive care [2] No family history on file. [3] Current Outpatient Medications on File Prior to Visit Medication Sig Dispense Refill amLODIPine (Norvasc) 5 MG tablet TAKE 1 TABLET BY MOUTH EVERY DAY 90 tablet 1 atorvastatin (Lipitor) 20 MG tablet Take 1 tablet (20 mg) by mouth at bedtime. 90 tablet 1 Blood Pressure Monitoring (Blood Pressure Cuff) misc 1 each Once per day. 1 each 0 lisinopril 20 MG tablet Take 1 tablet (20 mg) by mouth Once per day. 90 tablet 1 metoprolol succinate XL (Toprol-XL) 100 MG 24 hr tablet Take 1 tablet (100 mg) by mouth Once per day. Do not crush or chew. 90 tablet 1 No current facility-administered medications on file prior to visit. documented in this encounter Miscellaneous Notes * Assessment & Plan Note - Sarina Herndon MD - 07/31/2025 10:12 AM EDT Associated Problem(s): Encounter for preventive care See HPI * Assessment & Plan Note - Sarina Herndon MD - 07/31/2025 10:11 AM EDT Associated Problem(s): Vaginal itching BV ordered patient will be contacted with results I will prescribe for now clotrimazole cream * Assessment & Plan Note - Sarina Herndon MD - 07/31/2025 10:11 AM EDT Associated Problem(s): Primary hypertension I advised: - Aerobic exercise to reduce BP. Initial goal of 30 min walk 3-5x/week. Increase as tolerated. - low-sodium diet (goal: <2g/day) and heart healthy diet such as DASH to reduce BP and prevent ASCVD. - Home BP monitoring 1-2 x day with goal of <140/90. - Seek immediate medical attention for chest pain, palpitations, SOB, syncope, or sudden changes inmental status. - Do not change or discontinue current prescriptions without first consulting health care provider documented in this encounter Plan of Treatment Scheduled Orders Name Type Priority Associated Diagnoses Orde r Schedule Cologuard colon cancer screening Lab Routine Screening for colon cancer Ordered: 07/31/2025 documented as of this encounter Procedures Procedure Name Priority Date/Time Associated Diagnosis Comments BACTERIAL VAGINOSIS PANEL Routine 07/31/2025 10:08 AM EDT Vaginal itching HM PAP/HPV Routine 04/04/2025 documented in this encounter Results * (ABNORMAL) Bacterial Vaginosis Panel (07/31/2025 10:08 AM EDT) TRICHOMONAS VAGINALIS DETECTION BY PCR NOT DETECTED Not Detect [facility] BACTERIAL VAGINOSIS DETECTION BY PCR POSITIVE(A) Negative [facility] Comment:The BV organism targ ets of the Xpert Xpress MVP test can becommensal in women; Xpert Xpress MVP positive results forbacterial vaginosis should be considered in conjunction withother clinical and patient information to determine thedisease status. Organisms that are not detected by the XpertXpress MVP test have also been reported to be associatedwith BV and aerobic vaginitis.The Xpert Xpress MVP test performance has not been evaluatedin patients under the age of 14. ANGELA GROUP DETECTION BY PCR NOT DETECTED Not Detect [facility] Angela glab krusei PCR NOT DETECTED Not Detect [facility] Swab Vaginal structure / Unknown 07/31/2025 10:08 AM EDT 07/31/2025 11:26 AM EDT Sarina Herndon MD LAB MICROBIOLOGY - GE NERAL ORDERABLES Final Result [facility] [address] [place] [phone] * HM PAP/HPV (04/04/2025) Pap Smear 1. NILM 1. NILM Comment:repeat 5 years HPV Not Detected Undetected, Indeterminat e, Quantitative , Not Detected Historical Provider HEALTH MAINTENANCE Final Result documented in this encounter Visit Diagnoses Diagnosis Primary hypertension- Primary Unspecified essential hypertension Screening for colon cancer Special screening for malignant neoplasms, colon Vaginal itching Pruritus of genital organs Encounter for preventive care documented in this encounter Care Teams Technical Information Specialist Relationship Specialty Start Date End Date Sarina Mcmahon MD [address] [place] [id number] PCP - General Internal Medicine 05/29/25 documented as of this encounter
[2025-07-31 12:37] LABS: Bacterial Vaginosis PCR POSITIVE (Negative); Candida Group PCR NOT DETECTED (Not Detect); Candida glab krusei PCR NOT DETECTED (Not Detect); Trichomonas vaginalis PCR NOT DETECTED (Not Detect)
--- OUTSIDE RECORDS SUMMARY | 2025-07-31 13:49 | XMS_ITS | Encounter Summary ---
Author Organization [employer] Address [address] [facility] 7t [place] [address] Care Team Providers Care Mold Yard Worker Name Role Phone Sarina Mcmahon MD Primary Care Provide r Reason for Visit * Reason Comments Med Refill Encounter Details Date Type Department Care Team (Late st Contact Info) Description 03/29/2025 Refill [facility] [address] [place] [phone] Ruby Dunbar MD [address] [place] [address] Social History Tobacco Use Types Packs/Day Years Used Date Smoking Tobacco: Never Passive Smoke Exposure: Never Smokeless Tobacco: Never Alcohol Use Standard Drinks/Week Comments Never 0 (1 standard drink = 0.6 oz pur e alcohol) Comments Unknown Sex and Gender Information Value Date Recorded Sex Assigned at Female 05/16/2024 10:18 AM EDT Legal Sex Female 10:11 AM EDT Gender Identity Female 05/16/2024 10:18 AM EDT Sexual Orientation Straight 05/16/2024 10 :18 AM EDT documented as of this encounter Plan of Treatment Not on file documented as of this encounter Visit Diagnoses Not on filedocumented in this encounter Care Teams Mold Yard Worker Relationship Specialty Start Date End Date Sarina Mcmahon MD [address] [place] [id number] PCP - General Internal Medicine 05/29/25 documented as of this encounter
--- OUTSIDE RECORDS SUMMARY | 2025-07-31 13:49 | XMS_ITS | Encounter Summary ---
Author Organization [employer] Address [address] [facility] 7t [place] [address] Care Team Providers Care Bell Ringer Name Role Phone Sarina Mcmahon MD Primary Care Provide r Reason for Visit * Reason Onset Date Comments Chart prep 07/30/2025 Encounter Details Date Type Department Care Team ([facility] st Contact Info) Description 07/30/2025 Telephone [facility] [address] [place] [address] Sarina Mcmahon MD [address] [place], [place] [phone] Chart prep Social History Tobacco Use Types Packs/Day Years Used Date Smoking Tobacco: Never Passive Smoke Exposure: Never Smokeless Tobacco: Never Alcohol Use Standard Drinks/Week Comments Never 0 (1 standard drink = 0.6 oz pur e alcohol) Housing Stability Answer Date Recorded What is your housing situation today? I have sharon sing 07/31/[address] you li [...] AM EDT documented as of this encounter Miscellaneous Notes * Telephone Encounter - Wilton Pina MA - 07/30/2025 11:02 AM EDT Chart Prep Labs: not done pt will be in early to complete Images: not applicable Referrals: not applicable Vaccines due: Hep B Screenings: colonoscopy and pap smear Overdue care gaps: SBIRT, SDOH, PHQ-9, GEORGIA-7, and Disability screen documented in this encounter Plan of Treatment Not on file documented as of this encounter Visit Diagnoses Not on filedocumented in this encounter Care Teams Bell Ringer Relationship Specialty Start Date End Date Sarina Mcmahon MD [address] [place] [address] PCP - General Internal Medicine 05/29/25 documented as of this encounter
--- OUTSIDE RECORDS SUMMARY | 2025-07-31 13:49 | XMS_ITS | Clinical Summary ---
Author Organization [facility] Address [address] [place] [address] Care Team Providers Care Personal Investment Adviser Name Role Phone Allison Prather NP Primary [...] Take 5 mg by mouth daily 4 Active atorvastatin (LIPITOR) 20 mg tablet Take 20 mg by mouth once daily 4 Active lisinopriL 20 mg tablet Take 20 mg by mouth daily 4 Active metoprolol succinate XL (TOPROL-XL) 100 mg 24 hr tablet Take 100 mg by mouth daily 4 Active ulipristaL (PAIGE) 30 mg tabletIndications: Encounter for prescription of emergency contraception Take 1 Tablet by mouth once for 1 dose 1 Tablet 3 5 Active Active Problems Problem Noted Date Diagnosed Date Class 1 obesity due to exces s calories with serious comorbidity and body mass index (BMI) of 32.0 to 32.9 in adult 07/04/2024 Breast pain 05/17/2024 Primary hypertension 02/09/2024 Immunizations Immunization Administration Dates Next Due Hep B, Adult/Adol ([id number]-ADULT) 07/04/2024(Deferred: Different Brand Given) Hep B,adult,adjuvanted (HEPLISAV) [...] e alcohol) Social Connections Answer Date Recorded How often do you feel lonely or isolated from th ose around you? 1 07/04/2024 Financial Resource Strain Answer Date R ecorded Hard to pay for: Food 1 07/04/2024 Stress Answer Date Recorded Do you feel these kinds of stress these days? 1 07/04/2024 Physical Activity Answer Date Recorded Physical Activity 0 02/09/2024 Food Insecurity Answer Date Recorded Hard to pay for: Food 1 07/04/2024 Transportation Needs Answer Date Record ed Hard to pay for: Transportation 1 07/04/2024 Housing Stability Answer Date Recorded Hard to pay for: Rent/Mortgage payment 1 07/04/2024 Safety and Environment Answer Date Toni rded Safety 0 02/09/2024 Utilities Answer Date Recorded Hard to pay for: Utilities 1 07/04 Employment Answer Date Recorded Employment 0 02/09/2024 [...] 2020 Fecal DNA 2020 Flexible Sigmoidoscopy 2020 Imm-Hepatitis B (2 of 2 - Cp G 2-dose series) 08/01/2024 07/04/2024 Alcohol and Drug Screen 11/22/2024 07/04/2024 Lipid Screening 07/04/2025 07/04/2024 Relationship Safety Screening/Counseling 07/04/2025 07/04/2024 [id number] ( season) 2025 Imm-Influenza (#1) 2025 Anxiety Screening 01/12/2026 01/12/2025 Annual Wellness (Adult): Ind icated (All Coverage) 04/04/2026 04/04/2025, 07/04/2024 Tobacco Screening 04/04/2026 04/04/2025 Diabetes Screening 07/04/2027 07/04/2024, 07/04/2024 Pap Smear [...] Encounter for screening for human papillomavirus (HPV) HIV 1/2 AG & AB W/RFLX (4TH GEN) Routine 07/04/2024 10:20 AM EDT Routine general medical examination at a health care facility HEPATITIS C AB W/RFLX HCV RNA, QT, RT PCR Routine 07/04/2024 10:20 AM EDT Routine general medical examination at a [facility] facility HEMOGLOBIN GLYCOSYLATED A1C Routine 07/04/2024 10:20 AM EDT Routine general medical examination at a [facility] facility LIPID PANEL Routine 07/04/2024 10:20 AM EDT Routine general medical examination at a [facility] facility from Last 3 Months or Most Recently Relevant to Health Maintenance Results * THINPREP IMAGING PAP, HPV MRNA E6/E7 RFLEX HPV 16,18/45 CT/NG Cervix- Endocervix Swab Routine (04/04/2025 9:01 AM EDT) CHLAMYDIA TRACHOMATIS RNA, TMA NOT DETECTED NOT DETECTED [facility] NEISSERIA GONORRHOEAE RNA, TMA NOT DETECTED NOT DETECTED [facility] COMMENT [facility] CLINICAL INFORMATION See Note [facility] Comment:None given LMP See Note [facility] Comment:03/13/25 PREV. PAP See Note [facility] Comment:NONE GIVEN PREV. BX See Note [facility] Comment:NONE GIVEN SOURCE See Note [facility] Comment:Cervix, Endocervix STATEMENT OF ADEQUACY See Note [facility] Comment: Satisfactory for evaluation. Endocervical/transformation zone component absent. INTERPRETATION/RESU LT See Note [facility] Comment: Cytology Results: Negative for intraepithelial lesion or malignancy. INFECTION See Note [facility] Comment: Shift in vaginal deana suggestive of bacterial vaginosis. COMMENT See Note [facility] Comment: This Pap test has been evaluated with computer assisted technology. ELECTRICAL PROSPECTOR See Note [employer] Comment: RXB, CT(ASCP) CT screening location: [address] [address] COMMENT [facility] HPV MRNA E6/E7 Not Detected Not Detected [facility] Comment: Methodology: Kitchen Operator-Mediated Amplification This assay detects E6/E7 viral messenger RNA (mRNA) from 14 high-risk HPV types (16,18,31,33,35,39,45,51,52,56,58,59,66,68). Cervical sources are required for HPV testing. If a vaginal source from a patient who has had a total hysterectomy with removal of cervix was submitted, please contact the testing laboratory for alternative testing options. For additional information, please refer to http://milog.[employer]/faq/ZRI898p0 (This link if provided for information/ educational purposes only.) Swab Cervix uteri structure / Unknown 04/04/2025 9:01 AM EDT 04/05/2025 11:35 AM EDT Narrative [employer] [facility] - 04/09/2025 2:43 PM EDT EXPLANATORY NOTE: [...] test SurePath(TM) specimens have been determined by [facility] [employer]. The modifications have not been cleared or approved by the FDA. This assay has been validated pursuant to the CLIA regulations and is used for clinical purposes. For additional information, please refer to https://milog.[employer]/faq/FJJ829 (This link is being provided for information/ educational purposes only.) Renée Guerra MD LAB - PATHOLOGY AND CYTOLOGY AMB ULATORY Final Result [facility] [address] [address], [facility] [address] [address] * HEPATITIS C AB W/RFLX HCV RNA, QT, RT PCR (07/04/2024 10:20 AM EDT) HEPATITIS C ANTIBODY NON-REACT JESUS NON-REACT JESUS [employer] [facility] Comment: HCV antibody was non-reactive. There is no laboratory evidence of HCV infection. In most cases, no further action is required. However, if recent HCV exposure is suspected, a test for HCV RNA (test code 59816) is suggested. For additional information please refer to http://milog.[employer]/faq/NYE68e5 (This link is being provided for informational/ educational purposes only.) Blood Blood / Unknown 07/04/2024 1 0:20 AM EDT 07/04/2024 10:21 AM EDT us Allison Prather COATING MACHINE FEEDER LAB - BLOOD DRAW Final Resul t Performing Organization Address [facility] Co de Phone Number [employer] [address] [place] [address], [facility] [address] [address] * HIV 1/2 AG & AB W/RFLX (4TH GEN) (07/04/2024 10:20 AM EDT) HIV AG/AB, 4TH GEN NON-REAC TIVE NON-REAC TIVE [facility] Comment: HIV-1 antigen and HIV-1/HIV-2 antibodies were [...] purpose. For additional information please refer to http://milog.[employer]/faq/AHI405 (This link is being provided for informational/ educational purposes only.) The performance of this assay has not been clinically validated in patients less than 2 years old. Blood Blood / Unknown 07/04/2024 1 0:20 AM EDT 07/04/2024 10:21 AM EDT us Allison Washington Valle COATING MACHINE FEEDER LAB - BLOOD DRAW Final Resul t Performing Organization Address [facility]/ZIP Co de Phone Number [employer] [address] [address], [place] [employer] [facility] [address] [place] [address] * HEMOGLOBIN GLYCOSYLATED A1C (07/04/2024 10:20 AM EDT) HEMOGLOBIN A1C 5.6 <5.7 % of total Hgb [facility] Comment: For the purpose of screening for the presence of diabetes: <5.7% Consistent with the absence of diabetes 5.7-6.4% Consistent with increased risk for diabetes (prediabetes) > or =6.5% Consistent with diabetes This assay result is consistent with a decreased risk of diabetes. Currently, no consensus exists regarding use of hemoglobin A1c for diagnosis of diabetes in children. According to [place] Diabetes Association (ADA) guidelines, hemoglobin A1c <7.0% represents optimal control in non- diabetic patients. Different metrics may apply to specific patient populations. Standards of Medical Care in Diabetes(ADA). Blood Blood / Unknown 07/04/2024 1 0:20 AM EDT 07/04/2024 10:21 AM EDT Allison Prather NP LAB - BLOOD DRAW Edited Resu lt - Final [employer] [address] [address], [employer] [address] [address] * LIPID PANEL (07/04/2024 10:20 AM EDT) Pathologist [facility] CHOLESTEROL, TOTAL 146 <200 mg/dL [employer] HDL CHOLESTEROL 85 > OR = 50 mg/dL [facility] TRIGLYCERIDES 36 <150 mg/dL [employer] [facility] LDL-CHOLESTEROL 51 99 mg/dL (calc) [facility] Comment: Reference range: <100 Desirable range <100 mg/dL for primary prevention; <70 mg/dL for patients with CHD or diabetic patients with > or = 2 CHD risk factors. LDL-C is now calculated using the Reymundo calculation, which is a validated novel method providing better accuracy than the Friedewald equation in the estimation of LDL-C. Arnaldo FELDMAN et al. JULIA. 2013;310(19): 8769-8986 (http://education.[employer]/faq/ITY752) CHOL/HDLC RATIO 1.7 <5.0 (calc) [facility] NON-HDL CHOLESTEROL 61 <130 mg/dL (calc) [facility] Comment: For patients with diabetes plus 1 major ASCVD risk factor, treating to a non-HDL-C goal of <100 mg/dL (LDL-C of <70 mg/dL) is considered a therapeutic option. Blood Blood / Unknown 07/04/2024 1 0:20 AM EDT 07/04/2024 10:21 AM EDT Allison Prather NP LAB - BLOOD DRAW Final Resul t [employer] [place] [employer] [address] [address], [employer] [address] [place] [address] from Last 3 Months or Most Recently Relevant to Health Maintenance Insurance [place] Care Teams Personal Investment Adviser Relationship Specialty Start Date End Date Allison Prather NP [address] [place] [address] PCP - General Internal Medicine 04/20/24
--- OUTSIDE RECORDS SUMMARY | 2025-07-31 13:49 | XMS_ITS | Encounter Summary ---
Author Organization [employer] Address [address] [place] [address] Care Team Providers Care Packer Name Role Phone Sarina Mcmahon MD Primary Care Provide r Encounter Details Date Type Department Care Team (Latest Contact Info) Description 07/31/2025 Travel Social History Tobacco Use Types Packs/Day Years Used Date Smoking Tobacco: Never Passive Smoke Exposure: Never Smokeless Tobacco: Never Alcohol Use Standard Drinks/Week Comments Never 0 (1 standard drink = 0.6 oz pur e alcohol) Housing Stability Answer Date Recorded What is your housing situation today? I have [facility] 07/31/[address] you li [...] AM EDT documented as of this encounter Functional Status * Over the [...] Trouble relaxing 1 07/31/2025 9:52 AM EDT H [place] Being so restless that it is [...] [place] documented as of this encounter Plan of Treatment Not on file documented as of this encounter Visit Diagnoses Not on filedocumented in this encounter Care Teams Packer Relationship Specialty Start Date End Date Sarina Mcmahon MD [address] [place] [address] PCP - General Internal Medicine 05/29/25 documented as of this encounter
--- OUTSIDE RECORDS SUMMARY | 2025-07-31 13:49 | XMS_ITS | Clinical Summary ---
Author Organization [employer] Address [address] [facility] [address] [place] [address] Care Team Providers Care [employer] Name Role Phone Sarina Mcmahon MD Primary Care Provide r Allergies No known active allergies Medications amLODIPine (Norvasc) 5 MG tablet TAKE 1 TABLET BY MOUTH EVERY DAY 90 tablet 1 5 Active metoprolol succinate XL (Toprol-XL) 100 MG 24 hr tabletIndications :Primary hypertension Take 1 tablet (100 mg) by mouth Once per day. Do not crush or chew. 90 tablet 1 5 05/29/20 26 Active lisinopril 20 MG tabletIndications :Primary hypertension Take 1 tablet (20 mg) by mouth Once per day. 90 tablet 1 5 05/29/20 26 Active atorvastatin (Lipitor) 20 MG tabletIndications :Primary hypertension Take 1 tablet (20 mg) by mouth at bedtime. 90 tablet 1 5 05/29/20 26 Active Blood Pressure Monitoring (Blood Pressure Cuff) miscIndications:P rimary hypertension 1 each Once per day. 1 each 5 Active clotrimazole (Lotrimin) 1 % vaginal creamIndications: Vaginal itching Insert 1 applicator into the vagina in the evening for 7 days. 45 g 5 08/07/20 25 Active Active Problems Problem Noted Date Diagnosed Date Vaginal itching 07/31/2025 Assessment & Plan (07/31/2025 10:11 AM EDT): BV ordered patient will be contacted with results I will prescribe for now clotrimazole cream Encounter for preventive care 07/31/2025 Assessment & Plan (07/31/2025 10:12 AM EDT): See HPI Anemia 05/29/2025 Breast pain 05/17/2024 Assessment & Plan (07/31/2024 5:04 PM EDT): Findings of most recent mammo/breast US shared with patient. I gave her infor re [facility] breast clinic to rs appt, I told her to bring old mammograms form previous PCP and the one from last month. Use tylenol prn pain Assessment & Plan (05/17/2024 5:21 PM EDT): Bl breast pain L>R ,palpated bl nodularities/masses, no axillary LDN, no erythema no incrase skin temp ,no nipple discharge appreciated -referred today to breast surgeon -BL MM Dx and US bl-will call pt w results -tylenol prn and NSAIDS prn , warm compresses -urine preg test neg today -Requested today for new pt apt Primary hypertension 02/09/2024 Assessment & Plan (07/31/2025 10:11 AM EDT): I advised: - Aerobic exercise to reduce BP. Initial goal of 30 min walk 3-5x/week. Increase as tolerated. - low-sodium diet (goal: <2g/day) and heart healthy diet such as DASH to reduce BP and prevent ASCVD. - Home BP monitoring 1-2 x day with goal of <140/90. - Seek immediate medical attention for chest pain, palpitations, SOB, syncope, or sudden changes in mental status. - Do not change or discontinue current prescriptions without first consulting health care provider Assessment & Plan (05/29/2025 2:45 PM EDT): Patient did not took her blood pressure medication today because she ran out of it, her BP is 114/81, I decided to refill her metoprolol and lisinopril but I will hold for now her amlodipine I prescribed for her a BP cuff and instructed for her to check her blood pressure at home and bring log in 2 weeks for nurse visit plan is if BP is within normal limits we will continue with same medications but if it is elevated I will add again the amlodipine 5 mg Assessment & Plan (07/31/2024 5:03 PM EDT): Uncontrolled today due to being out of meds Restart Amlodipine, metoprolol and Lisinopril and fu with new PCP in 1-2m Counseled re low salt diet/increase moderate physical activity. Check home BP BIW and prn CP/SEYMOUR/CH Non smoking patient. Encounters Date Type Department Care Team Description 07/31/2025 9:30 AM EDT Office Visit [address] [address] Sarina Mcmahon MD Primary hypertension (Primary Dx); Screening for colon cancer; Vaginal itching; Encounter for preventive care 07/31/2025 Travel 07/30/[address] [address] Sarina Mcmahon MD Chart prep 07/20/2025 Patient Outreach [address] [address] Sarina Mcmahon MD Pre-visit Planning (SDOH screening negative and tobacco screening negative) 06/12/2025 1:30 PM EDT Clinical Support [address] [address] Glenis Maya, SANDEEP Primary hypertension 06/12/2025 Travel 05/29/2025 1:00 PM EDT Office Visit [facility] [address] [place] [phone] Sarina Mcmahon MD Anemia, unspecified type (Primary Dx); Primary hypertension 05/29/2025 Travel 05/29/2025 Refill [facility] [address] [place] [address] [phone] Ruby Dunbar MD 05/11/2025 Results Follow-Up [address] [address] Sarina Grier MD CBC auto differential, Strep A Nucleic Acid, Comprehensive Metabolic Panel, Additional followed-up results: 2 05/10/2025 Orders Only GENERIC EXTERNAL DATA DEPARTMENT Provider, Generic External Data from Last 3 Months Immunizations Immunization Administration Dates Next Due HepB-CpG 07/04/2024 Tdap 07/04/2024 Social History Tobacco Use Types Packs/Day Years Used Date Smoking Tobacco: Never Passive Smoke Exposure: Never Smokeless Tobacco: Never Alcohol Use Standard Drinks/Week Comments Never 0 (1 standard drink = 0.6 oz pur e alcohol) Housing Stability Answer Date Recorded What is your housing situation today? I have sharon rhodes 07/31/[address] you [...] Orientation Straight 05/16/2024 10 :18 AM EDT Last Filed Vital Signs Vital Sign Reading [...] Mass Index 32.99 07/31/2025 9:31 AM EDT Plan of Treatment Health Maintenance Due Date Last Done Comments CT Colonography 1975 Colonoscopy 1975 Colorectal Cancer Screening 1975 Depression Screening 1975 FIT DNA/Cologuard 1975 FIT 1975 FOBT 1975 Lipid Panel 1975 Sigmoidoscopy 1975 Alcohol/Substance Use Screening 1987 Family Planning (PISQ) 1990 Hepatitis C Screening 1993 Hepatitis B Vaccines (2 of 2 - CpG 2-dose series) 08/01/2024 07/04/2024 COVID-19 Vaccine (1 - 2023-2 5 season) 2025 Influenza Vaccine (#1) 2025 Zoster Vaccines (1 of 2) 2025 Mammogram 07/05/2026 07/05/2024, 07/05/2024, 07/05/2024 Disability Screening 07/31/2026 07/31/2025 SDOH Screening 07/31/2026 07/31/2025 Tobacco Screening 07/31/2026 07/31/2025 Pap Smear 04/04/2028 04/04/2025 Cervical Cancer Screening 04/04/2030 HPV/Cotest 04/04/2030 04/04/2025 DTaP/Tdap/Td Vaccines (3 - T d or Tdap) 07/04/2034 07/04/2024, 01/20/2019 RSV Patients and Patients Aged 60 years or older (1 - 1-dose 75+ series) 2050 HIV Screening Completed 07/04/2024, 07/04/2024 HIB Vaccines Aged Out No longer eligi ble based on patient's age to complete this topic HPV Vaccines Aged Out No longer eligi ble based on patient's age to complete this topic Hepatitis A Vaccines Aged Out No long er eligible based on patient's age to complete this topic IPV Vaccines Aged Out No longer eligi ble based on patient's age to complete this topic Meningococcal B Vaccine Aged Out No l onger eligible based on patient's age to complete this topic Meningococcal Vaccine Aged Out No mary jane isabela eligible based on patient's age to complete this topic Pneumococcal Vaccine: Pediatrics (0 to 5 Years) and At-Risk Patients (6 to 49) Years Aged Out No longer eligible b ased on patient's age to complete this topic RSV under 20 months Aged Out No longe r eligible based on patient's age to complete this topic Rotavirus Vaccines Aged Out No longer eligible based on patient's age to complete this topic Procedures Procedure Name Priority Date/Time Associated Diagnosis Comments BACTERIAL VAGINOSIS PANEL Routine 07/31/2025 10:08 AM EDT Vaginal itching HIGH SENSITIVITY TROPONIN I Routine 05/10/2025 9:15 AM EDT COMPREHENSIVE METABOLIC PANEL Routine 05/10/2025 9:15 AM EDT CBC WITH AUTO DIFFERENTIAL Routine 05/10/2025 9:15 AM EDT SARS COV2/INFLUENZA A/B AND RSV RNA QL NAAT Routine 05/10/2025 9:08 AM EDT STREP A NUCLEIC ACID Routine 05/10/2025 9:08 AM EDT HM PAP/HPV Routine 04/04/2025 BI US BREAST LIMITED LEFT Routine 07/05/2024 12:31 PM EDT from Last 3 Months or Most Recently Relevant to Health Maintenance Results * (ABNORMAL) Bacterial Vaginosis Panel (07/31/2025 10:08 AM EDT) TRICHOMONAS VAGINALIS DETECTION BY PCR NOT DETECTED Not Detect [facility] BACTERIAL VAGINOSIS DETECTION BY PCR POSITIVE(A) Negative [facility] Comment:The BV organism targ ets of [...] DETECTION BY PCR NOT DETECTED Not Detect [facility] Angela glab krusei PCR NOT DETECTED Not Detect [facility] Swab Vaginal structure / Unknown 07/31/2025 10:08 AM EDT 07/31/2025 11:26 AM EDT us Sarina Herndon MD LAB MICROBIOLOGY - NERAL ORDERABLES Final Result Performing Organization Address [facility] Co de Phone Number [facility] [address] [place] [phone] * High Sensitivity Troponin I (05/10/2025 9:15 AM EDT) [facility] TROPONIN I HIGH SENSITIVITY <2.7 <3.5 - 17.0 ng/L [facility] Comment:The [place] high sens itivity Troponin-I results should beused in conjunction with other diagnostic information suchas ECG, clinical observations and information, and patientsymptoms to aid in the diagnosis of VA. 05/10/2025 9:15 AM EDT 05/10/2025 9:17 AM EDT us Generic External Data Provider LAB BLOOD ORDERAB LES Final Result Performing Organization Address [facility] Co de Phone Number [facility] [address] [place] [phone] * (ABNORMAL) CBC auto differential (05/10/2025 9:15 AM EDT) [facility] White Blood Count 12.0(H) 4.8 - 10.8 X10*3/uL [facility] Red Blood Count 4.45 4.20 - 5.50 X10*6/uL [facility] Hemoglobin 10.5(L) 12.0 - 16.0 g/dl [facility] Hematocrit 34.1(L) 37.0 - 47.0 % [facility] Mean Corpuscular Volume 76.6(L) 80.0 - 98.0 fL [facility] Mean Corpuscular Hemoglobin 23.6(L) 27.0 - 33.0 pg [facility] Mean Corpuscular HGB Conc 30.8(L) 31.0 - 35.0 g/dl [facility] Red Cell Distribution Width 16.6(H) 11.0 - 16.0 % [facility] Platelet Count 211 160 - 400 X10*3/uL [facility] Mean Platelet Volume 10.1 9.4 - 12.3 fL [facility] Neutrophils Percent Auto 81.2(H) 45 - 73 % [facility] Imm Gran Pct Auto 0.4 0.0 - 0.4 % [facility] Lymphocytes Percent Auto 9.5(L) 20 - 40 % [facility] Monocytes Percent Auto 8.2 2 - 11 % [facility] Eosinophils Percent Auto 0.4 0 - 4 % [facility] Basophils Percent Auto 0.3 0 - 2 % [facility] NRBC Pct Auto 0.0 0.0 - 0.2 /100WBC [facility] Neutrophils Absolute Auto 9.7(H) 2.0 - 8.3 x10*3/uL [facility] Imm Gran Abs Auto 0.05(H) 0.00 - 0.03 X10*3/uL [facility] Lymphocytes Absolute Auto 1.1(L) 1.2 - 4.9 X10*3/uL [facility] Monocytes Absolute Auto 1.0 0.1 - 1.2 X10*3/uL [facility] Eosinophils Absolute Auto 0.1 0.0 - 0.4 X10*3/uL [facility] Basophils Absolute Auto 0.0 0.0 - 0.2 X10*3/uL [facility] NRBC Abs Auto 0.000 0.0 - 0.012 X10*3/uL [facility] 05/10/2025 9:15 AM EDT 05/10/2025 9:17 AM EDT us Generic External Data Provider LAB BLOOD ORDERAB LES Final Result [facility] [address] [place] [phone] * (ABNORMAL) Comprehensive Metabolic Panel (05/10/2025 9:15 AM EDT) Sodium 139 135 - 145 mmol/L [facility] Potassium 4.1 3.3 - 5.1 mmol/L [facility] Chloride 105 96 - 108 mmol/L [facility] Carbon Dioxide 27 22 - 29 mmol/L [facility] Anion Gap 11(L) 12 - 20 [facility] Urea Nitrogen (BUN) 10 9 - 16 mg/dL [facility] Creatinine, Serum 1.05 0.5 - 1.4 mg/dL [facility] Creatinine Clr Calc Pharmacy 74.5 [facility] Comment:Provided height and weight: 172.72 cm,86.183 kg.eGFR (calculated from the MDRD study equation) and eCrCl(calculated from the Cockcroft-Gault equation) are based ondifferent parameters and may not yield comparable results.If eCrCl result is absurd, please check patient'sheight/weight. Estimated Glomerular Filt Rate 56 [facility] Comment:Chronic Kidney Disea se: Estimated GFR < 60 mL/min/[id number] Kidney Disease: Estimated GFR < 15 mL/min/1.73m2 Glucose 109 60 - 115 mg/dL [facility] Calcium 9.0 8.4 - 10.2 mg/dL [facility] Bilirubin, Total 0.3 0.0 - 1.0 mg/dL [facility] Aspartate Amino Transferase 20 5 - 31 U/L [facility] Alanine Aminotransferase 14 0 - 31 U/L [facility] Total Protein 7.3 6.5 - 8.0 g/dL [facility] Albumin Level 4.1 3.5 - 5.0 g/dL [facility] Alkaline Phosphatase 100 39 - 117 U/L [facility] 05/10/2025 9:15 AM EDT 05/10/2025 9:17 AM EDT Generic External Data Provider LAB BLOOD ORDERAB LES Final Result Performing Organization Address [facility] Co de Phone Number [facility] [address] [place] [phone] * Strep A Nucleic Acid (05/10/2025 9:08 AM EDT) IDNOW SERIAL# [id number] [facility] Strep A Nucleic Acid Negative Negative [facility] Comment:All test results mus t be correlated with clinical findings.This test has not been evaluated for monitoring treatment ofinfection.Additional follow-up testing using the culture method isrequired if the result is negative and clinical symptomspersist, or in the event of an acute rheumatic feveroutbreak. 05/10/2025 9:08 AM EDT 05/10/2025 9:13 AM EDT Generic External Data Provider LAB MICROBIOLOGY - GENERAL ORDERABLES Final Result Performing Organization Address [facility] de Phone Number [facility] [address] [place] [phone] * SARS-CoV-2 RNA, Influenza A/B, and RSV RNA, Ql NAAT (05/10/2025 9:08 AM EDT) Influenza A PCR NEGATIVE Negative [facility] Influenza B PCR NEGATIVE Negative [facility] Resp Syncy Virus RNA Qual PCR NEGATIVE Negative [facility] SARS COV2 PCR NEGATIVE Negative [facility] Comment:All test results mus t be correlated with clinical findings.Negative results do not preclude SARS-CoV2, influenza Avirus, influenza B virus and/or RSV infectionand should not be used as the sole basis for treatment orother patient management decisions. Negative results must becombined with clinical observations, patient history, andepidemiological information.This test has not been evaluated for monitoring treatment ofinfection.This test has been authorized by the FDA under an EmergencyUse Authorization (EUA) for use by authorized laboratories.Testing performed on the [employer] GeneXpert utilizingreal-time RT-PCR.All SARS CoV2 and positive influenza A/B results arereported to [facility]. 05/10/2025 9:08 AM EDT 05/10/2025 9:13 AM EDT us Generic External Data Provider LAB MICROBIOLOGY - GENERAL ORDERABLES Final Result [facility] [address] [place] [phone] * HM PAP/HPV (04/04/2025) Pap Smear 1. NILM 1. NILM Comment:repeat 5 years HPV Not Detected Undetected, Indeterminat e, Quantitative , Not Detected us Historical Provider HEALTH MAINTENANCE Final Result * BI US Breast Limited Left (07/05/2024 12:31 PM EDT) Anatomical Region Laterality Modality Breast Left Ultrasound 07/05/2024 12:3 1 PM EDT Narrative 07/05/2024 12:52 PM EDT [address] [place] [address] Ultrasound Report Signed Patient: Lilliam Ellis MR#: [id number] 1 : 1975 Acct:[id number] Age/Sex: 48 / F ADM Date: 07/05/24 Loc: HO.MAMMO Attending Dr: Sarina Hightower MD Ordering Physician: Sarina Grier MD Date of Service: 07/05/24 Procedure(s): US breast LT limited mamm only Accession Number(s): [id number] cc: Sarina Grier MD EXAMINATION: MM DIAGNOSTIC DIGITAL BREAST TOMOSYNTHESIS, BILATERAL US BREAST LIMITED, BILATERAL MAMMOGRAPHY: CLINICAL INFORMATION: Diagnostic exam for 40-year-old female complaining of bilateral breast pain (diffuse on the left, inferolateral and medial as well as the retroareolar on the right) as well as bilateral palpable nodularities, with the patient having history of numerous cysts in both breasts. History of benign left breast cyst aspiration 03/17/2022. COMPARISON: Mammography: 03/06/2022. ([facility]) TECHNIQUE: Digital breast tomosynthesis is performed in both the craniocaudal and mediolateral oblique views along with computer-aided detection (CAD). Synthesized 2D images are generated from the tomosynthesis. In addition, added bilateral 3-D full-field MLO views for anterior compression were obtained. FINDINGS: The breasts are extremely dense, which lowers the sensitivity of mammography (ACR BI-RADS breast composition Category d). Redemonstration of innumerable global calcifications bilateral breasts, of which the majority layer on the MLO projections and are suggestive of milk of calcium. These are unchanged and benign. No suspicious pleomorphic groupings. No aggressive changes. There are numerous round and oval circumscribed masses in both breasts right greater than left, similar to recent prior exam, representing the known numerous cysts in both breasts. These are benign and largely stable. There is no area of architectural distortion in either breast. No suspicious masses. Parenchymal pattern is stable from 03/06/2022. No skin or axillary abnormalities. No correlation in either breast mammographically for breast pain aside from numerous cysts. ULTRASOUND: CLINICAL INFORMATION: Diffuse LEFT breast pain, and inferolateral and medial RIGHT breast pain. COMPARISON: Bilateral 08/06/2022, Left ultrasound 07/29/2022, bilateral diagnostic ultrasound 03/06/2022. ([facility]) TECHNIQUE: Targeted sonographic both breasts evaluation was performed using a high frequency linear transducer. Entire LEFT breast was scanned including all 4 quadrants, and the retroareolar region. The RIGHT breast was scanned lower lateral and lower medial quadrants, and the retroareolar region. This includes the regions of bilateral pain and numerous palpable nodularities. Selected archived documentation. FINDINGS: RIGHT BREAST: There is dense fibrocystic breast tissue present. There are numerous oval and round simple cysts as well as clusters of cysts present. These are benign. There are echogenic foci with ringdown artifact within microcysts, findings consistent with benign milk of calcium. No suspicious masses, abnormal shadowing, or suspicious cystic findings. Lower inner and lateral regions of right breast pain, likely related to the presence of numerous cysts. LEFT BREAST: There is dense fibrocystic breast tissue present. There are several oval and round simple cysts as well as clusters of microcysts cysts present. These are benign. There are echogenic foci with ringdown artifact within microcysts, findings consistent with benign milk of calcium. No suspicious masses, abnormal shadowing, or suspicious cystic findings. Diffuse left breast pain likely related to presence of numerous cysts. US/US breast LT limited mamm only IMPRESSION: -There are no findings suspicious for malignancy. There are no significant changes from the prior study. -Benign calcifications globally in both breasts. These layer and are likely milk of calcium. -Numerous round and oval cysts in both breasts, likely correlating with the regions of pain and palpable concern. Recommend clinical management and follow-up. -Otherwise, recommend the patient resume annual screening. OVERALL ASSESSMENT: Mammography: BI-RADS 2 - Benign Findings Ultrasound: BI-RADS 2 - Benign Findings RECOMMENDATION: 1. Patient should be managed based on the clinical impression. 2. Otherwise, routine annual screening mammography. This patient's information was entered into a reminder system with a target due date for their next mammogram. Dictated By: Ricardo Moeller MD Signed By: <Electronically signed by Ricardo Moeller MD in OV> 07/05/24 1248 DD/ 1231 TD/TT: Repair Service Clerk: Procedure Note Donotuseinterpreter, Image - 07/05/2024 [facility] [address] [place] [address] Ultrasound Report Signed Patient: Lilliam Ellis#: [id number] 1 : 1975Acct:[id number] Age/Sex: 48 / FADM Date: 07/05/24 Loc: HO.MAMMO Attending Dr: Sarina Hightower MD Ordering Physician: Sarina Grier MD Date of Service: 07/05/24 Procedure(s): US breast LT limited mamm only Accession Number(s): [id number] cc: Sarina Grier MD EXAMINATION: MM DIAGNOSTIC DIGITAL BREAST TOMOSYNTHESIS, BILATERAL US BREAST LIMITED, BILATERAL MAMMOGRAPHY: CLINICAL INFORMATION: Diagnostic exam for 40-year-old female complaining of bilateral breast pain (diffuse on the left, inferolateral and medial as well as the retroareolar on the right) as well as bilateral palpable nodularities, with the patient having history of numerous cysts in both breasts. History of benign left breast cyst aspiration 03/17/2022. COMPARISON: Mammography: 03/06/2022. ([facility]) TECHNIQUE: Digital breast tomosynthesis is performed in both the craniocaudal and mediolateral oblique views along with computer-aided detection (CAD). Synthesized 2D images are generated from the tomosynthesis. In addition, added bilateral 3-D full-field MLO views for anterior compression were obtained. FINDINGS: The breasts are extremely dense, which lowers the sensitivity of mammography (ACR BI-RADS breast composition Category d). Redemonstration of innumerable global calcifications bilateral breasts, of which the majority layer on the MLO projections and are suggestive of milk of calcium. These are unchanged and benign. No suspicious pleomorphic groupings. No aggressive changes. There are numerous round and oval circumscribed masses in both breasts right greater than left, similar to recent prior exam, representing the known numerous cysts in both breasts. These are benign and largely stable. There is no area of architectural distortion in either breast. No suspicious masses. Parenchymal pattern is stable from 03/06/2022. No skin or axillary abnormalities. No correlation in either breast mammographically for breast pain aside from numerous cysts. ULTRASOUND: CLINICAL INFORMATION: Diffuse LEFT breast pain, and inferolateral and medial RIGHT breast pain. COMPARISON: Bilateral 08/06/2022, Left ultrasound 07/29/2022, bilateral diagnostic ultrasound 03/06/2022. ([facility]) TECHNIQUE: Targeted sonographic both breasts evaluation was performed using a high frequency linear transducer. Entire LEFT breast was scanned including all 4 quadrants, and the retroareolar region. The RIGHT breast was scanned lower lateral and lower medial quadrants, and the retroareolar region. This includes the regions of bilateral pain and numerous palpable nodularities. Selected archived documentation. FINDINGS: RIGHT BREAST: There is dense fibrocystic breast tissue present. There are numerous oval and round simple cysts as well as clusters of cysts present. These are benign. There are echogenic foci with ringdown artifact within microcysts, findings consistent with benign milk of calcium. No suspicious masses, abnormal shadowing, or suspicious cystic findings. Lower inner and lateral regions of right breast pain, likely related to the presence of numerous cysts. LEFT BREAST: There is dense fibrocystic breast tissue present. There are several oval and round simple cysts as well as clusters of microcysts cysts present. These are benign. There are echogenic foci with ringdown artifact within microcysts, findings consistent with benign milk of calcium. No suspicious masses, abnormal shadowing, or suspicious cystic findings. Diffuse left breast pain likely related to presence of numerous cysts. US/US breast LT limited mamm only IMPRESSION: -There are no findings suspicious for malignancy. There are no significant changes from the prior study. -Benign calcifications globally in both breasts. These layer and are likely milk of calcium. -Numerous round and oval cysts in both breasts, likely correlating with the regions of pain and palpable concern. Recommend clinical management and follow-up. -Otherwise, recommend the patient resume annual screening. OVERALL ASSESSMENT: Mammography: BI-RADS 2 - Benign Findings Ultrasound: BI-RADS 2 - Benign Findings RECOMMENDATION: 1. Patient should be managed based on the clinical impression. 2. Otherwise, routine annual screening mammography. This patient's information was entered into a reminder system with a target due date for their next mammogram. 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
--- OUTSIDE RECORDS SUMMARY | 2025-07-31 13:50 | XMS_ITS | Patient Health Record ---
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 Name Role Phone Bernabe Salomon Primary Care Provider Allergies No Known Allergies Reason For Referral No Information Medications Medication SIG (Take, Route, Frequency, Duration) Notes Start Date End Date Status Sertraline HCl 100 MG Tablet TAKE 1 TABLET BY MOUTH DAILY FOR 90 DAYS; Duration: 90 days Active Warfarin Sodium 7.5 MG Tablet 1 tablet Orally Once a day Active Metoprolol Succinate ER 100 MG Tablet Extended Release 24 Hour TAKE ONE TABLET BY MOUTH ONCE DAILY FOR 90 DAYS; Duration: 90 Active amLODIPine Besylate 5 MG Tablet TAKE ONE TABLET BY MOUTH ONCE DAILY POR 90 THOMPSON; Duration: 90 Active Lisinopril 20 MG Tablet TAKE ONE TABLET BY MOUTH ONCE DAILY; Duration: 90 Active Atorvastatin Calcium 20 MG Tablet TAKE ONE TABLET BY MOUTH ONCE DAILY FOR 90 DAYS; Duration: 90 Active Immunizations Vaccine Route Administration Date Status Comme nts INFLUENZA FLUZONE SYRINGE >3yr Unknown 01/20/2019 Refused INFLUENZA FLUZONE SYRINGE >3yr Unknown 09/05/2019 Refused TDAP / ADACEL MCR (Private) IM Intramuscular 01/20/2019 Administered Social History Tobacco Use: Social History Observation Description Date Details (start date - stop date) Never Smoker NA - NA Sex Assigned At : Social History Observation Description Sex Assigned At Female Social History Social Determinants Social Info Question Answer Notes PRAPARE Date Completed/Updated: 02/16/2022 What is your current housing situation? I have housing brother. Are you worried about losing your housing? No pt was evicted from prior home. What is the highest level of school that you have finished? 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 Check all that apply I do not have problems meeting my needs Has lack of transportation k ept you from medical appointments, meetings, work or from getting things needed for daily living? No How often do you see or talk to people that you care about and feel close to? (For example: talking to friends on the phone, visiting friends or family, going to druze or club meetings) 3 to 5 times a week How stressed are you? Stress is when someone feels tense, nervous, anxious, or cant sleep at night because their mind is troubled A little bit In the past year have you sp ent more than 2 nights in a row in a long-term, [facility], penitentiary center, or juvenile correctional facility? No Are you a refugee? No What country are you from? Country Other than the [place] (please write in notes) [place]. Please specify: [place] Do you feel physically and emotionally safe where you currently live? Unsure In the past year, have you b een afraid of your partner or ex-partner? No PRAPARE Score: 6 Communication Needs Social Info Question Answer Notes Health Literacy Do you or have you e destinee needed to have someone help you with reading instruction/pamphlets or other written material from your doctor or pharmacy? No Vision & Hearing Assessment Hearing Impairment No Vision Impairment No Miscellaneous: Social Info Question Answer Notes Occupation: Employed Yes Works part-time Living with: -Living With Children, Other (Free text in notes) brother Sexual History: Social Info Question Answer Notes Gender Identity Gender Identity Female Sexual Orientation Sexual Orientation Straight ( not lesbian or kulkarni) Sexual History: Had sex in the past 12 months (vaginal, oral, or anal) Yes with Men only Use protection? No Have you ever had a Sexually transmitted disease ? No Last menstrual period 01/28/2022 Multiple Partners no Drug/Alcohol: Social Info Question Answer Notes Drugs-self use Have you used drugs other than those for medical reasons in the past 12 months? No Alcohol use Did you have a drink containing alcohol in the past year? Yes How often did you have a drink containing alcohol in the past year? Monthly or less (1 point) How many drinks did you have on a typical day when you were drinking in the past year? 1 or 2 (0 points) How often did you have six or more drinks on one occasion in the past year? Never (0 points) Points 1 Interpretation Negative Eye Exam Social Info Question Answer Notes Date of Last Eye Exam: Have you had an e ye exam in the past year? No Dental Social Info Question Answer Notes Dental Visit Have you had a denta l visit in the past year? no last visit 06/2020 Was dental visit encouraged? Yes Tobacco Use: Social Info Question Answer Notes Tobacco use other than smoking Are you another tobacco form user No Smoking Are you a: never smoker Additional Details Category Social Info Options Details Miscellaneous: Marital status: Single Country of Origin: [place] Sexual History: Sexually active: no Behavioral Health-Adult Educational Background Highest level of education completed Bachelor in Marketing (amost complete) Marital Status Occupation Currently unempl oyed Living Situation Patient lives w ith family Section Notes: 43 year old [place] speaking woman undocumented; living in [place] with two children ages 13 and 7. 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 No transportation. No health insurance 43 year old [place] speaking woman undocumented; living in [place] with two children ages 13 and 7. 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 No transportation. No health insurance 43 year old [place] speaking woman undocumented; living in [place] with two children ages 13 and 7. 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 No transportation. No health insurance 43 year old [place] speaking woman undocumented; living in [place] with two children ages 13 and 7. 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 No transportation. No health insurance 43 year old [place] speaking woman undocumented; living in [place] with two children ages 13 and 7. 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 No transportation. No health insurance 43 year old [place] speaking woman undocumented; living in [place] with two children ages 13 and 7. 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 No transportation. No health insurance 43 year old [place] speaking woman undocumented; living in [place] with two children ages 13 and 7. 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 No transportation. No health insurance 43 year old [place] speaking woman undocumented; living in [place] with two children ages 13 and 7. 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 No transportation. No health insurance 43 year old [place] speaking woman undocumented; living in [place] with two children ages 13 and 7. 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 No transportation. No health insurance 43 year old [place] speaking woman undocumented; living in [place] with two children ages 13 and 7. 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 No transportation. No health insurance 43 year old [place] speaking woman undocumented; living in [place] with two children ages 13 and 7. 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 No transportation. No health insurance 43 year old [place] speaking woman undocumented; living in [place] with two children ages 13 and 7. 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 No transportation. No health insurance 43 year old [place] speaking woman undocumented; living in [place] with two children ages 13 and 7. 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 No transportation. No health insurance 43 year old [place] speaking woman undocumented; living in [place] with two children ages 13 and 7. 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 No transportation. No health insurance 43 year old [place] speaking woman undocumented; living in [place] with two children ages 13 and 7. 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 No transportation. No health insurance 43 year old [place] speaking woman undocumented; living in [place] with two children ages 13 and 7. 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 No transportation. No health insurance Problems Problem Type SNOMED Code ICD Code Onset Dates Problem Status W/U Status Risk Notes Problem Obese class I (finding) (383966810949930 ) Obesity (BMI 30.0-34.9) (E66.9) Active confirmed Problem Essential hypertension (55523765) Essential hypertension (I10) 9 Active confirmed Problem Migraine without aura, not refractory (683536586) Migraine without aura and without status migrainosus, not intractable (G43.009) Active confirmed Problem Pulmonary Embolism (27795015) Pulmonary embolism without acute cor pulmonale, unspecified chronicity, unspecified pulmonary embolism type (I26.99) Active confirmed Problem Moderate major depression, single episode (01223915) Moderate major depression, single episode (F32.1) 9 Active confirmed Problem Thoracic aortic aneurysm without rupture (61057200) Thoracic ascending aortic aneurysm (I71.2) Active confirmed Plan Of Treatment Pending Test Test Name Order Date COMPREHENSIVE METABOLIC PANEL W/eGFR COMPREHENSIVE METABOLIC PANEL W/eGFR FECAL GLOBIN BY IMMUNOCHEMISTRY 02/17/20 22 CHLAMYDIA TRACHOMATIS RNA, TMA 0 NEISSERIA GONORRHOEAE RNA, TMA 0 LIPID PANEL WITH REFLEX TO DIRECT LDL LIPID PANEL WITH REFLEX TO DIRECT LDL CBC (H/H, RBC, INDICES, WBC, PLT) 2019 TSH, 3RD GENERATION W/REFLEX 02/16/2022 HEPATITIS B SURFACE ANTIGEN W/REFL CONFI RM 02/16/2022 CBC (INCLUDES DIFF/PLT) 02/16/2022 HEPATITIS B SURFACE ANTIBODY (QUANT) COMPREHENSIVE METABOLIC PANEL, PLASMA TSH Reflexive 08/23/2019 CBC w/ Auto Diff 08/23/2019 Lipid Panel 08/23/2019 Comprehensive Metabolic Panel 08/23/2019 HIV 1/2 ANTIGEN/ANTIBODY,FOURTH GENERATI ON W/RFL 08/19/2020 HIV 1/2 ANTIGEN/ANTIBODY,FOURTH GENERATI ON W/RFL 02/16/2022 HEPATITIS C AB W/RFL RNA, PCR W/RFL SCAR TYPE,LIPA 02/16/2022 TRICHOMONAS VAGINALIS RNA QUALITATIVE TM A, MALES 08/19/2020 Medical (General) History Medical History History ICD Code HTN ascending thoracic aortic aneurysm 4.1 c m referred to Cardiology for f/u PE: unprovoked, as per Hemat ology, work-up negative. completed 9 month anticoagulation Surgical History Surgery Date(Month/Year) 04/2006 04/2012 Left Ovary Remove. 2016 Hospitalization History Reason Date(Month/Year) Breast Pain 07/2022 Headache 11/2019 Left Ovary remove. 2016 04/2012 04/2006
== END 2025-07-31 11:24 | disposition home or self-care (01) ==
LOC: HO.HHCLNP 11:23
PROVIDERS: Visit Provider Internal Medicine
DX: N89.8 Other specified noninflammatory disorders of vagina (principal)
CPT/HCPCS: 81515

== ENCOUNTER 2025-11-01 09:46 | Outpatient (REF) | payer MEDICAID, OTHER, SELFPAY ==
[2025-11-01 11:04] LABS: Hematocrit 39.9 % (37.0-47.0); Hemoglobin 12.2 g/dl (12.0-16.0); Imm Gran Abs Auto 0.02 X10*3/uL (0.00-0.03); Imm Gran Pct Auto 0.3 % (0.0-0.4); Lymphocytes Absolute Auto 1.2 X10*3/uL (1.2-4.9); Mean Corpuscular HGB Conc 30.6 g/dl (31.0-35.0); Mean Corpuscular Hemoglobin 23.3 pg (27.0-33.0); Mean Corpuscular Volume 76.3 fL (80.0-98.0); NRBC Abs Auto 0.000 X10*3/uL (0.0-0.012); NRBC Pct Auto 0.0 /100WBC (0.0-0.2); Red Blood Count 5.23 X10*6/uL (4.20-5.50)
[2025-11-01 11:10] LABS: Platelet Count 212 X10*3/uL (160-400); White Blood Count 6.2 X10*3/uL (4.8-10.8)
[2025-11-01 14:37] LABS: Alanine Aminotransferase 16 U/L (0-31); Albumin Level 4.3 g/dL (3.5-5.0); Alkaline Phosphatase 108 U/L (39-117); Anion Gap 9 (12-20); Aspartate Amino Transferase 23 U/L (5-31); Blood Urea Nitrogen 12 mg/dL (9-16); Calcium 9.0 mg/dL (8.4-10.2); Carbon Dioxide 28 mmol/L (22-29); Chloride 105 mmol/L (96-108); Cholesterol 134 mg/dL (<200); Estimated Glomerular Filt Rate > 60; HDL Cholesterol 77 mg/dL (>40); Iron 44 mcg/dL (30-160); Percent Iron Saturation 13 % (15-50); Potassium 4.1 mmol/L (3.3-5.1); Sodium 138 mmol/L (135-145); Total Iron Binding Capacity 332 mcg/dL (228-428); Total Protein 7.6 g/dL (6.5-8.0); Triglycerides 38 mg/dL (<150); Unsaturated Iron Binding 288 ug/dL
[2025-11-01 14:53] LABS: Ferritin 16 ng/mL (10-250)
[2025-11-01 14:59] LABS: Folate 12.4 ng/mL (> or = 4.0); Vitamin B12 577 pg/mL (200-900)
[2025-11-02 07:51] LABS: HBS Num1 45.95 mIU/mL (0-7.99); HIV Num 1 0.08 S/CO (0.00-0.99); ~HepC Num1 0.15 S/CO (0.00-0.79); ~Hepatitis B Surface Antibody REACTIVE (Nonreactive); ~Hepatitis C Antibody Nonreactive (Nonreactive)
[2025-11-02 09:44] LABS: Rubeola IgG (Measles) 269.00 AU/mL
== END 2025-11-01 09:47 | disposition home or self-care (01) ==
LOC: HO.HHCL 09:46
PROVIDERS: PCP Internal Medicine; Visit Provider Internal Medicine
DX: Z00.00 Encounter for general adult medical examination without abnormal findings (principal); Z01.84 Encounter for antibody response examination; Z11.59 Encounter for screening for other viral diseases; Z11.4 Encounter for screening for human immunodeficiency virus [HIV]; I10 Essential (primary) hypertension; D64.9 Anemia, unspecified
CPT/HCPCS: 36415; 80053; 80061; 82306; 82607; 82728; 82746; 83036; 83540; 84443; 85025; 86706; 86735; 86762; 86765; 86803; 87389